=== PATIENT | female | born 1990 | race Hispanic/Latino ===

== ENCOUNTER → 2023-05-30 | Emergency (ER) | payer OTHER ==
[~2023-05-30] MED LIST: DIPHENHYDRAMINE 50 MG/ML VIAL ONE; FAMOTIDINE 20 MG/2 ML VIAL IV ONE; IPRATROPIUM BROM 0.5MG/2.5ML ONE; LEVALBUTEROL 1.25 MG/3 ML NEB ONE; METHYLPREDNISOLONE 125 MG INJ ONE; METHYLPREDNISOLONE 40 MG INJ ONE; METOPROLOL TAR 25 MG TAB ONE; METOPROLOL TARTRATE 5 MG/5 ML INJ IV ONE; NA CHLORIDE 0.9% 1,000 ML ONE; predniSONE 20 MG TAB ONE
--- OUTSIDE RECORDS SUMMARY | 2023-05-30 18:51 | XMS REPORT | Continuity of Care Document ---
Author Name Unknown Address [address] [facility]. [address] [place] [address] [facility] thconnect Address [address] [facility] [address] [place] [address] Care Team Providers Care Scale Operator Name Role Phone AURELIA CASTRO JR Primary Care Physician Sandro hameed GC_GCBZW_Dean_S Attending Clinician Unavaila CALISTA Thompson Attending Clinician Unavail able [facility] Attending [facility]ician Purvi Serna Calista LANIER Attending Clinician + LYDIA DESAI Attending Clinician Lydia Hooper Attending Clinician [phone] Melita Murillo Attending Clinician [phone] MELITA ARORA Attending Clinician Unavailabl e LUISA_GCBZW_Dena_S Admitting Clinician Tavon weaver Payers Payer Name Policy Type Policy Number Effective Date Expirati on Date Source [employer] [id number] 2022 00:00:00 2023 00:00:00 [employer] (MEDICAID REPLACEMENT - HMO) [id number] 2022 00:00:00 [employer] BENEFIT [employer] [id number] [employer] [facility] [employer] [facility] [id number] 2022 00:00:00 MEDICAID OF [place] [id number] 2022 00:00:00 Problems Condition Name Condition Details [...] Acute Vaginitis Problem Active 7-17 00:00: 00 [facility] Medical Need for HPV vaccinatio n Need for HPV vaccinatio n Disease Active 3-15 00:00: 00 [facility] Encounter for initial prescripti on of injectable contracept davidson Encounter for initial prescripti on of injectable contracept davidson Disease Active 05-22 00:00: 00 [facility] BMI 25.0-25.9, adult BMI 25.0-25.9, adult Disease Active 05-22 00:00: 00 [facility] BMI 25.0-25.9, adult BMI 25.0-25.9, adult Disease Active 05-22 00:00: 00 [facility] Screening examinatio n for STD (sexually transmitte d disease) Screening examinatio n for STD (sexually transmitte d disease) Disease Active 3- 00:00: 00 [facility] LSIL (low grade squamous intraepith elial lesion) on Pap smear LSIL (low grade squamous intraepith elial lesion) on Pap smear Disease Active 05-08 00:00: 00 Overview: Formattin g of this note might be different from the original. Refer to dysplasia . [facility] Rubella immune Rubella immune Disease Active 05-04 00:00: 00 [facility] Encounter for routine gynecologi aubrey examinatio n Encounter for routine gynecologi aubrey examinatio n Disease Active 04-30 00:00: 00 Overview: Formattin g of this note might be different from the original. ICD10 Diagnosis Term Gandy Dancer Utility [facility] Allergies, Adverse Reactions, Alerts Allergy Name Allergy Type Status Severity Reaction(s) Onset Date Inactive Date Treating Clinician Comments Source NO KNOWN ALLERGIE S Drug Class Active [facility] Social History Social Habit Start Date Stop Date Quantity Comments Source History SDOH Alcohol Frequency [facility] History SDOH Alcohol Std Drinks [facility] History SDOH Alcohol Binge [facility] Exposure to SARS-CoV-2 (event) 2022-04-14 00:00:00 2022-04-24 13:10:00 Not sure [facility] Alcohol intake 2021-09-13 00:00:00 2021-09-13 00:00:00 Current drinker of alcohol (finding) [facility] Alcohol Comment 2020-05-18 00:00:00 2020-05-18 00:00:00 social [facility] Tobacco use and exposure 2013-04-30 00:00:00 2013-04-30 00:00:00 Smokeless tobacco non-user [facility] Sex Assigned At 1990 00:00:00 1990 00:00:00 [facility] Smoking Status Start Date Stop Date Source Never smoked tobacco [facility] Medications Ordered Medication Name Filled Medication Name Start Date Stop Date Current Medication? Ordering Clinician Indication Dosage Frequency Signature (SIG) Comments Components Source Depo-[employer] Officer a 150 mg/mL intramuscul ar suspensionI nject 1 mL every 3 months by intramuscul ar route for 90 days. Depo-[employer] Officer a 150 mg/mL intramuscul ar suspensionI nject 1 mL every 3 months by intramuscul ar route for 90 days. 04-19 09:09: 37 No Depo-Prove ra 150 mg/mL intramuscu lar suspension Inject 1 mL every 3 months by intramuscu lar route for 90 days. [facility] medroxyPROG ESTERone (DEPO-PROVE RA) syringe 150 mg 04-24 20:00: 00 04-24 19:13 :00 No [id number] 150mg [facility] medroxyPROG ESTERone (DEPO-PROVE RA) syringe 150 mg 04-24 20:00: 00 04-24 19:13 :00 No [id number] 150mg 150 mg, Intramuscu lar, ONCE, 1 dose, On Sat04/24/22 at 1400, Routine [facility] medroxyPROG ESTERone (DEPO-PROVE RA) injection 150 mg 2-0 3-14 19:30: 00 04-23 20:14 :00 No [id number] 150mg Univer [facility] medroxyPROG ESTERone (DEPO-PROVE RA) injection 150 mg 2-0 3-14 19:30: 00 04-23 20:14 :00 No [id number] 150mg 150 mg, Intramuscu lar, [id number], 4 doses, First dose on Sat05/22/21 at 1430, Last dose on Sat01/29/22 at 1430, Routine [facility] medroxyPROG ESTERone (DEPO-PROVE RA) injection 150 mg 2-0 3-14 19:30: 00 04-23 20:14 :00 No [id number] [facility] medroxyPROG ESTERone (DEPO-PROVE RA) injection 150 mg 2-0 3-14 19:30: 00 04-23 20:14 :00 No [id number] 150mg 150 mg, Intramuscu lar, [id number], 4 doses, First dose on Sat05/22/21 at 1430, Last dose on Sat01/29/22 at 1430, Routine [facility] medroxyPROG ESTERone (DEPO-PROVE RA) injection 150 mg 2-0 3-14 19:30: 00 04-23 20:14 :00 No [id number] [facility] medroxyPROG ESTERone (DEPO-PROVE RA) injection 150 mg 2-0 3-14 19:30: 00 04-23 20:14 :00 No [id number] 150mg 150 mg, Intramuscu lar, [id number], 4 doses, First dose on Sat05/22/21 at 1430, Last dose on Sat01/29/22 at 1430, Routine [facility] medroxyPROG ESTERone (DEPO-PROVE RA) injection 150 mg 2-0 3-14 19:30: 00 04-23 20:14 :00 No [id number] 150mg [facility] medroxyPROG ESTERone (DEPO-PROVE RA) injection 150 mg 05-22 19:30: 00 04-23 20:14 :00 No [id number] [facility] ESTERone (DEPO-PROVE RA) injection 150 mg 05-22 19:30: 00 04-23 20:14 :00 No [id number] 150mg 150 mg, Intramuscu lar, [id number], 4 doses, First dose on Sat05/22/21 at 1430, Last dose on Sat01/29/22 at 1430, Routine [facility] mupirocin 2 % topical ointment 1 application to affected area; Three times a day; 5 day(s) mupirocin 2 % topical ointment 1 application to affected area; Three times a day; 5 day(s) 09-27 00:00: 00 No mupirocin 2 % topical ointment 1 applicatio n to affected area; Three times a day; 5 day(s) [facility] Depo-[employer] Officer a 150 mg/mL intramuscul ar suspension Inject 1 mL every 3 months by intramuscul ar route for 90 days. Depo-[employer] Officer a 150 mg/mL intramuscul ar suspension Inject 1 mL every 3 months by intramuscul ar route for 90 days. No 1mL Depo-Prove ra 150 mg/mL intramuscu lar suspension Inject 1 mL every 3 months by intramuscu lar route for 90 days. [facility] Medical multivitami n multivitami n No multivitam in [facility] Vital Signs Vital Name Observation Time Observation Value Comments S ource Systolic blood pressure 2022-04-24 19:11:00 127 mm[Hg] [facility] Diastolic blood pressure 2022-04-24 19:11:00 70 mm[Hg] [facility] Heart rate 2022-04-24 19:11:00 85 /min [facility] Body temperature 2022-04-24 19:11:00 36.39 Annmarie [facility] Respiratory rate 2022-04-24 19:11:00 18 /min [facility] Body height 2022-04-24 19:11:[address] [facility] Body weight 2022-04-24 19:11:[address] [facility] BMI 2022-04-24 19:11:00 25.36 kg/m2 [facility] Systolic blood pressure 2022-01-09 20:16:00 129 mm[Hg] [facility] Diastolic blood pressure 2022-01-09 20:16:00 81 mm[Hg] [facility] Heart rate 2022-01-09 20:16:00 87 /min [facility] Body temperature 2022-01-09 20:16:00 36.22 Annmarie [facility] Respiratory rate 2022-01-09 20:16:00 18 /min [facility] Body weight 2022-01-09 20:16:[address] [facility] BMI 2022-01-09 20:16:00 25.49 kg/m2 [facility] Systolic blood pressure 2021-09-13 14:08:00 118 mm[Hg] [facility] Diastolic blood pressure 2021-09-13 14:08:00 79 mm[Hg] [facility] Heart rate 2021-09-13 14:08:00 81 /min [facility] Body temperature 2021-09-13 14:08:00 36.28 Annmarie [facility] Respiratory rate 2021-09-13 14:08:00 18 /min [facility] Body weight 2021-09-13 14:08:[address] [facility] BMI 2021-09-13 14:08:00 26.13 kg/m2 [facility] Systolic blood pressure 2021-05-22 18:48:00 109 mm[Hg] [facility] Diastolic blood pressure 2021-05-22 18:48:00 75 mm[Hg] [facility] Heart rate 2021-05-22 18:48:00 95 /min [facility] Body temperature 2021-05-22 18:48:00 36.72 Annmarie [facility] Respiratory rate 2021-05-22 18:48:00 16 /min [facility] Body height 2021-05-22 18:48:[address] [facility] Body weight 2021-05-22 18:48:[address] [facility] BMI 2021-05-22 18:48:00 25.59 kg/m2 [facility] Procedures Procedure Date / Time Performed Performing Clinician Source POCT TEST 2021-09-13 14:13:00 Gab Serna [facility] GARDASIL 9 (HPV 9V) VACCINE 2021-09-13 14:09:26 Calista Serna [facility] HIV 1/2 AG-AB WITH REFLEX 2021-05-22 20:45:00 Lydia Desai [facility] PAP SMEAR-LIQUID BASED-CP 2021-05-22 20:45:00 Lydia Desai [facility] GALV ONLY - SYPHILIS IGG/IGM 2021-05-22 20:45:00 Lydia Desai [facility] GARDASIL 9 (HPV 9V) VACCINE 2021-05-22 19:42:17 Lydia Desai [facility] POCT TEST 2021-05-22 19:17:00 Wilfred Desai [facility] Breast Augmentation W/implt 2017-03-11 00:00:00 [facility] Hysteroscopy Dx Sep Proc 2013-12-23 00:00:00 [facility] Plan of Care Planned Activity Planned Date Details Comments Source Future Appointment 2023-09-26 13:00:00 Melita larsen, [address]; [address], [place] [phone] [facility] Medical Future Appointment 2023-07-12 08:30:00 Gcbzw Gcb jose Izaguirre Schedule, [address]; [address], [place] [phone] [facility] Medical Encounters Start Date/Time End Date/Time Encounter Type Admission Type Attending Clinicians Care Facility Care Department Encounter ID Source 2023-04-19 00:00:00 2023-04-19 00:00:00 Angle Moran MD: [address] [place] [address] S, [address], [place] [address] , Ph. [facility] - GC_GCBZW_La alee Lynn* [id number] [facility] 2023-01-18 00:00:00 2023-01-18 00:00:00 Outpatient GC_GCBZW_Ka diyala_S PRIV PRIV [id number] [facility] 2023-01-18 00:00:00 2023-01-18 00:00:00 Outpatient GC_GCBZW_Ka diyala_S PRIV PRIV [id number] [facility] 2023-01-18 00:00:00 2023-01-18 00:00:00 Outpatient GC_GCBZW_Ka diyala_S PRIV PRIV [id number] [facility] 2022-12-24 00:00:00 2022-12-24 00:00:00 Outpatient GC_GCBZW_Ka diyala_S PRIV PRIV [id number] [facility] 2022-11-07 00:00:00 2022-11-07 00:00:00 Outpatient GC_GCBZW_Ka diyala_S PRIV PRIV [id number] [facility] 2022-11-07 00:00:00 2022-11-07 00:00:00 Outpatient GC_GCBZW_Ka diyala_S PRIV PRIV [id number] [facility] 2022-11-07 00:00:00 2022-11-07 00:00:00 Outpatient GC_GCBZW_Ka diyala_S PRIV PRIV [id number] [facility] 2022-10-16 00:00:00 2022-10-16 00:00:00 Outpatient GC_GCBZW_Ka diyala_S PRIV PRIV [id number] [facility] 2022-10-16 00:00:00 2022-10-16 00:00:00 Outpatient GC_GCBZW_Ka diyala_S PRIV PRIV [id number] [facility] 2022-10-02 00:00:00 2022-10-02 00:00:00 Outpatient GC_GCBZW_Ka diyala_S PRIV PRIV [id number] [facility] 2022-09-25 00:00:00 2022-09-25 00:00:00 Outpatient GC_GCBZW_Ka diyala_S PRIV PRIV [id number] [facility] 2022-09-24 00:00:00 2022-09-24 00:00:00 Outpatient GC_GCBZW_Ka diyala_S PRIV PRIV [id number] [facility] 2022-09-20 00:00:00 2022-09-20 00:00:00 Outpatient GC_GCBZW_Ka diyala_S PRIV PRIV [id number] [facility] 2022-09-19 00:00:00 2022-09-19 00:00:00 Outpatient GC_GCBZW_Ka diyala_S PRIV PRIV [id number] [facility] 2022-08-24 09:45:00 2022-08-24 09:45:00 Outpatient R AKINSIPECALISTA [facility] [id number] [facility] 2022-08-03 13:00:00 2022-08-03 13:00:00 Outpatient R AKINSIPECALISTA [facility] [id number] [facility] 2022-07-30 15:00:00 2022-07-30 15:00:00 Outpatient R AKINSIPECALISTA [facility] [id number] [facility] 2022-07-17 14:45:00 2022-07-17 14:45:00 Outpatient R AKINSIPE CALISTA [facility] [id number] [facility] 2022-04-24 13:00:00 2022-04-24 13:10:58 Outpatient R AKINSIPE CALISTA [facility] [id number] [facility] 2022-04-24 13:00:00 2022-04-24 13:10:58 Nurse Visit Visit, ChapoRmchchapincito Nurse Calista Serna [facility] [employer] [facility] [id number] [facility] 2022-04-17 13:30:00 2022-04-17 13:30:00 Outpatient CALISTA PARIKH [facility] [id number] [facility] 2022-04-09 09:00:00 2022-04-09 09:00:00 Outpatient CALISTA PARIKH [facility] [id number] [facility] 2022-01-09 14:30:00 2022-01-09 15:18:06 Nurse Visit Visit, Horaciochchapincito Nurse Calista Serna [facility] [employer] [facility] 1..840.114 [id number] [id number] [facility] 2022-01-09 14:30:00 2022-01-09 14:30:00 Outpatient CALISTA PARIKH [facility] [id number] [facility] 2022-01-08 00:00:00 2022-01-08 00:00:00 Telephone Calista Serna [facility] [employer] [facility] 1..840.114 [id number] [id number] [facility] 2022-01-01 13:00:00 2022-01-01 13:00:00 Outpatient R CALISTA SERNA [facility] [id number] [facility] 2021-12-18 13:30:00 2021-12-18 13:30:00 Outpatient R LYDIA DESAI [facility] [id number] [facility] 2021-12-14 09:00:00 2021-12-14 09:00:00 Outpatient R DESAILYDIA [facility] [id number] [facility] 2021-09-13 09:00:00 2021-09-13 09:26:35 Nurse Visit Visit, Ang-Rmchp Nurse Lydia Desai [facility] [employer] [facility] ..840.114 [id number] [id number] [facility] 2021-09-13 09:00:00 2021-09-13 09:00:00 Outpatient R LYDIA DESAI [facility] [id number] [facility] 2021-08-14 15:00:00 2021-08-14 15:00:00 Outpatient R CALISTA SERNA [facility] [id number] [facility] 2021-07-28 08:00:00 2021-07-28 08:00:00 Outpatient R DESAILYDIA [facility] [id number] [facility] 2021-07-24 15:00:00 2021-07-24 15:00:00 Outpatient R [facility] [id number] [facility] 2021-07-24 15:00:00 2021-07-24 15:00:00 Outpatient R LYDIA DESAI [facility] [id number] [facility] 2021-05-22 13:45:00 2021-05-22 14:41:23 Outpatient R LYDIA DESAI [facility] [id number] [facility] 2021-05-22 13:45:00 2021-05-22 14:41:23 Office Visit Lydia Desai [facility] [employer] [facility] ..840.114 [id number] [id number] [id number] [facility] 2021-05-22 13:45:00 2021-05-22 14:41:23 Outpatient R LYDIA DESAI [facility] [id number] [facility] 2021-05-09 14:15:00 2021-05-09 14:15:00 Outpatient R CALISTA SERNA [facility] [id number] [facility] 2021-02-14 15:26:31 2021-02-14 15:49:16 Nurse Visit Visit, Jin-Rmp Melita Brice [facility] [employer] [facility] [id number] [id number] [id number] [facility] 2021-02-14 15:30:00 2021-02-14 15:30:00 Outpatient R MELITA ARORA [facility] [id number] [facility] 2021-02-08 08:30:00 2021-02-08 08:30:00 Outpatient R [facility] [id number] [facility] 2020-11-16 08:38:28 2020-11-16 08:58:47 Nurse Visit Visit, Jin-Rmchp Calista Bailey [facility] .[id number] [id number] [id number] [facility] 2020-11-16 08:30:00 2020-11-16 08:30:00 Outpatient R [facility] [id number] [facility] 2020-08-24 08:30:00 2020-08-24 08:30:00 Outpatient R [facility] [id number] [facility] 2020-06-02 15:30:00 2020-06-02 15:30:00 Outpatient R [facility] [id number] [facility] 2020-06-01 09:00:00 2020-06-01 09:00:00 Outpatient R AKINSIPE, CALISTA [facility] [id number] [facility] 2020-05-18 13:30:00 2020-05-18 13:30:00 Outpatient CALISTA PARIKH [facility] [id number] [facility] Results Test Description Test Time Test Comments Results Result Co mments Source [facility] ONLY - SYPHILIS [id number] 15:41:25* Test Item Value Reference Range Interpretation Comme [facility] Syphilis IgG/IgM (test code = 85053-3) Non-reactive Non-reactive RENETTA (test code = RENETTA) Non-reactive - No serologic evidence of T. pallidum infection. Cannot exclude incubating or early syphilis. Submit a second specimen in 2-4 weeks if syphilis is clinically suspected. Equivocal - Further testing to follow. Reactive - Further testing to follow. Lab Interpretation (test code = 69816-6) Normal [facility] ONLY - SYPHILIS [id number] 15:41:25* Test Item Value Reference Range Interpretation Comme [facility] Syphilis IgG/IgM (test code = 87864-4) Non-reactive Non-reactive RENETTA (test code = RENETTA) Non-reactive - No serologic evidence of T. pallidum infection. Cannot exclude incubating or early syphilis. Submit a second specimen in 2-4 weeks if syphilis is clinically suspected. Equivocal - Further testing to follow. Reactive - Further testing to follow. Lab Interpretation (test code = 82078-6) Normal [facility] 1/2 AG-AB WITH [id number] 05:11:44* Test Item Value Reference Range Interpretation Comme [facility] HIV Semi-quantitative (test code = 62870-1) Negative Negative RENETTA (test code = RENETTA) Non-reactive for HIV-1 antigen and HIV-1/HIV-2 antibodies. ?No laboratory evidence of HIV infection. ?Repeat in 2-4 weeks if acute HIV infection is suspected. [facility] 1/2 AG-AB WITH [id number] 05:11:44* Test Item Value Reference Range Interpretation Comme [facility] HIV Semi-quantitative (test code = 50159-7) Negative Negative RENETTA (test code = RENETTA) Non-reactive for HIV-1 antigen and HIV-1/HIV-2 antibodies. ?No laboratory evidence of HIV infection. ?Repeat in 2-4 weeks if acute HIV infection is suspected. [id number] 19:17:00* Test Item Value Reference Range Interpretation Comme nts POCT PREG (test code = 1605) Negative On board controls acceptable with C Line (test code = 3574) Yes POCT PREG LOT # (test code = 3575) POCT PREG TEST DATE ( test code = 3576) [facility] [id number] 19:17:00* Test Item Value Reference Range Interpretation Comme nts POCT PREG (test code = 1605) Negative On board controls acceptable with C Line (test code = 3574) Yes POCT PREG LOT # (test code = 3575) POCT PREG TEST DATE ( test code = 3576) [facility]
[2023-05-30 19:29] LABS: Absolute Lymphocytes (CBC) 0.9 K/uL (0.7-4.9); Absolute Monocytes 0.2 K/uL (0.1-1.3); Basophils % 0.2 % (0-1.3); Hematocrit 37.9 % (36.0-45.0); Hemoglobin 13.5 g/dL (12.0-15.0); MCH 33.9 pg (27.0-35.0); MCHC 35.7 g/dL (32.0-36.0); MCV 94.9 fL (80-100); Monocytes % 2.6 % (3.3-12.3); Neutrophils % 87.2 % (41.7-73.7); Nucleated Red Blood Cells % 0.2 % (0-0); Platelets 334 thou/uL (152-406); RBC Red Blood Cell Count 3.99 M/uL (3.86-4.86); Red Cell Distribution Width 12.7 % (12.1-15.2)
[2023-05-30 19:33] LABS: Anion Gap 12.7 mEq/L (5.0-15.0); Potassium 3.7 mEq/L (3.5-5.1)
[2023-05-30 21:07] LABS: Blood Morphology Comment NOT SEEN (NOT SEEN); Platelet Estimate ADEQ; White Blood Cell Scan OK (OK)
--- NOTE | 2023-05-30 22:55 | ER ---
Nurse's Notes [facility] Name: Regine Barrera Age: 32 yrs Sex: Female : 1990 Arrival Date: 05/30/2023 Time: 18:48 Bed 16 Private MD: Diagnosis: Other and unspecified allergy;Urticaria, unspecified Presentation: 05/29 18:53 Chief complaint: Patient states: "I was here in the ER for the same thing this morning. mb9 I'm having a allergic reaction and rash on my hands, arms, chest, legs, and chest. My heart feels like it's beating super fast. Dr. Moreno told me to come to the ER to rule out angioedema". Coronavirus screen: Vaccine status: Patient reports being unvaccinated. Ebola Screen: No symptoms or risks identified at this time. Initial Sepsis Screen: Does the patient meet any 2 criteria? No. Patient's initial sepsis screen is negative. Does the patient have a suspected source of infection? No. Patient's initial sepsis screen is negative. Risk Assessment: Do you want to hurt yourself or someone else? Patient reports no desire to harm self or others. Onset of symptoms was May 30, 2023. 18:53 Method Of Arrival: Ambulatory mb9 18:53 Acuity: NANCY 3 mb9 Triage Assessment: 18:56 General: Appears in no apparent distress. Behavior is calm, cooperative. Pain: Denies mb9 pain. Cardiovascular: Reports palpitations, Patient's skin is warm and dry. Rhythm is sinus tachycardia. Respiratory: Airway is patent Respiratory effort is even, unlabored, Respiratory pattern is regular, symmetrical. GI: No signs and/or symptoms were reported involving the gastrointestinal system. Derm: Rash noted that is itchy, red, raised, on chest, abdomen, right hand, left hand, right arm, left arm, right leg, left leg and mouth. Musculoskeletal: Range of motion: intact in all extremities. 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 - Social history:: Smoking status: Patient denies any tobacco usage or history of. Screenin:15 [facility] ED Fall Risk Assessment (Adult) History of falling in the last 3 months, me1 including since admission No falls in past 3 months (0 pts) Confusion or Disorientation No (0 pts) Intoxicated or Sedated No (0 pts) Impaired Gait No (0 pts) Mobility Assist Device Used No (0 pt) Altered Elimination No (0 pt) Score/Fall Risk Level 0 - 2 = Low Risk Maintained a safe environment, Provided non-skid footwear, Hourly rounding (assess needs \\T\\ fall precautionary measures) done. Abuse screen: Denies threats or abuse. Nutritional screening: No deficits noted. Tuberculosis screening: No symptoms or risk factors identified. Assessment: 19:15 General: Appears uncomfortable, well groomed, well developed, well nourished, Behavior me1 is calm, cooperative, appropriate for age, Reports "I was here in the ER for the same thing this morning. I'm having a allergic reaction and rash on my hands, arms, chest, legs, and chest. My heart feels like it's beating super fast. Dr. Moreno told me to come to the ER to rule out angioedema". Pain: Denies pain. Neuro: Level of Consciousness is awake, alert, obeys commands, Oriented to person, place, time, situation, Appropriate for age. Cardiovascular: Patient's skin is warm and dry. Cardiovascular: Patient's skin is warm and dry. Respiratory: Airway is patent Respiratory effort is even, unlabored, Respiratory pattern is regular, symmetrical. Derm: edema noted to bottom lip and across bridge of nose. Hives to bilateral thighs. 20:00 Reassessment: Patient and/or family updated on plan of care and expected duration. Pain me1 level reassessed. Patient is alert, oriented x 3, equal unlabored respirations, skin warm/dry/pink. 21:00 Reassessment: Patient and/or family updated on plan of care and expected duration. Pain me1 level reassessed. Patient is alert, oriented x 3, equal unlabored respirations, skin warm/dry/pink. 22:00 Reassessment: Patient and/or family updated on plan of care and expected duration. Pain me1 level reassessed. Patient is alert, oriented x 3, equal unlabored respirations, skin warm/dry/pink. Patient states feeling better. 23:00 Reassessment: Patient and/or family updated on plan of care and expected duration. Pain me1 level reassessed. Patient is alert, oriented x 3, equal unlabored respirations, skin warm/dry/pink. Vital Signs: 18:53 BP 133 / 81; Pulse 130; Resp 18; Temp 98; Pulse Ox 100% on R/A; Weight 68.95 kg; Height mb9 5 ft. 4 in. ; Pain 0/10; 19:45 BP 127 / 77; Pulse 124; Resp 18; Pulse Ox 100% on R/A; me1 20:30 BP 122 / 72; Pulse 125; Resp 18; Pulse Ox 97% on R/A; me1 21:41 BP 111 / 74; Pulse 129; Resp 18; Pulse Ox 98% on R/A; me1 21:45 BP 119 / 78; Pulse 114; Resp 18; Pulse Ox 96% on R/A; me1 22:00 BP 119 / 78; Pulse 111; Resp 20; Pulse Ox 100% on R/A; me1 23:02 BP 117 / 86; Pulse 118; Resp 16; Pulse Ox 99% on R/A; me1 18:53 Body Mass Index 26.09 (68.95 kg, 162.56 cm) mb9 18:53 Pain Scale: Adult mb9 ED Course: 18:51 Patient arrived in ED. mg5 18:53 Edison Hill PA is PHCP. cp 18:53 Edison Nath MD is Attending Physician. cp 18:53 Arm band placed on. mb9 18:56 Triage completed. mb9 19:05 Inserted saline lock: 18 gauge in right antecubital area, using aseptic technique. mb9 Blood collected. 19:15 Patient has correct armband on for positive identification. Bed in low position. Call mo1 light in reach. Side rails up X2. Provided Education on: POC. Verbalized understanding. . 19:15 No provider procedures requiring assistance completed. me1 19:28 Jael Neil, RANJEET is Primary Nurse. me1 23:20 IV discontinued, intact, bleeding controlled, No redness/swelling at site. Pressure me1 dressing applied. Administered Medications: 19:31 Not Given (Duplicate Order): [id number] mg IVP once ata 19:51 Drug: Famotidine IVP 20 mg IVP once; dilute with 10 mL 0.9% NaCl; give over 2 minutes me1 Route: IVP; Site: right antecubital; 20:47 Follow up: Response: No adverse reaction me1 19:51 Drug: Levalbuterol Inhalation 2.5 mg Inhalation once Route: Inhalation; me1 20:47 Follow up: Response: No adverse reaction me1 19:51 Drug: Ipratropium Inhalation Aerosol 0.5 mg Inhalation once Route: Inhalation; me1 20:47 Follow up: Response: No adverse reaction me1 19:52 Drug: NS 0.9% IV 1000 ml IV at 1 bolus Per protocol; 1000 mL bolus Route: IV; Rate: 1 me1 bolus; Site: right antecubital; 20:46 Follow up: IV Status: Completed infusion; IV Intake: 1000ml me1 19:52 Drug: Famotidine IVP 20 mg IVP once; dilute with 10 mL 0.9% NaCl; give over 2 minutes me1 Route: IVP; Site: right antecubital; 20:46 Follow up: Response: No adverse reaction me1 19:52 Drug: diphenhydrAMINE IVP 50 mg IVP once Route: IVP; Site: right antecubital; me1 20:46 Follow up: Response: (VIS) Vaccine information sheet provided today. Questions and/or me1 concerns addressed. VIS edition date: Oct 14, 2020. 19:52 Drug: MethylPrednisoLONE IVP 125 mg IVP once Route: IVP; Site: right antecubital; me1 20:46 Follow up: Response: No adverse reaction me1 19:52 Drug: predniSONE PO 60 mg PO once Route: PO; me1 20:47 Follow up: Response: No adverse reaction me1 21:58 Drug: Metoprolol IVP 5 mg IVP once; Hold for SBP <100 or HR <60. Route: IVP; Site: me1 right antecubital; 22:21 Follow up: Response: No adverse reaction me1 22:02 Drug: NS 0.9% IV 1000 ml IV at 1 bolus Per protocol; 1000 mL bolus Route: IV; Rate: 1 me1 bolus; Site: right antecubital; 23:21 Follow up: IV Status: Completed infusion me1 22:20 Drug: Metoprolol PO 12.5 mg PO once Route: PO; me1 23:03 Follow up: Response: No adverse reaction me1 Medication: 19:15 VIS not applicable for this client. me1 Intake: 20:46 IV: 1000ml; Total: 1000ml. me1 Outcome: 22:54 Discharge ordered by . cp 23:20 Discharged to home ambulatory, me1 23:20 Condition: stable 23:20 Discharge instructions given to patient, Instructed on discharge instructions, follow up and referral plans. Demonstrated understanding of instructions, follow-up care, 23:21 Patient left the ED. me1 Signatures: Edison Hill PA PA cp Breneman, Mary Beth RN RN mb9 Jael Neil RN RN mo1 Lluvia Vernon 5 Edison Nath MD, cha Corrections: (The following items were deleted from the chart) 18:58 18:53 Chief complaint: Patient states: "I was here in the ER for the same thing this mb9 morning. I'm having a allergic reaction and rash on my hands, arms, chest, legs, and chest. My heart feels like it's beating super fast. Dr. Moreno told me to come to the ER" mb9 21:03 18:53 Chief complaint: Patient states: "I was here in the ER for the same thing this me1 morning. I'm having a allergic reaction and rash on my hands, arms, chest, legs, and chest. My heart feels like it's beating super fast. Dr. Moreno told me to come to the ER to rule out angioedema" mb9
--- NOTE | 2023-05-30 22:55 | EDPHYS ---
Physician Documentation [facility] Name: Regine Barrera Age: 32 yrs Sex: Female : 1990 Arrival Date: 05/30/2023 Time: 18:48 Bed 16 Private MD: ED Physician Edison Nath HPI: 05/29 19:10 This 32 yrs old Female presents to ER via Ambulatory with complaints of Rash - cp HIVES. 19:10 The patient's rash thought to be caused by an unknown cause. The rash is located on the cp body diffusely. The rash can be described as hives. Associated signs and symptoms: Pertinent positives: swelling of lips, Pertinent negatives: difficulty breathing, fever, swelling of throat, swelling of tongue, vomiting. The patient has been recently seen at the [facility] Emergency Department, for similar complaints this morning. 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 - Social history:: Smoking status: Patient denies any tobacco usage or history of. ROS: 19:15 Constitutional: Negative for body aches, chills, fever, poor PO intake, cp 19:15 Eyes: Negative for injury, pain, redness, and discharge, cp 19:15 ENT: Positive for swelling of lips, Negative for sore throat, difficulty swallowing, difficulty handling secretions, hoarseness, 19:15 Cardiovascular: Negative for chest pain, palpitations, 19:15 Respiratory: Negative for cough, shortness of breath, wheezing, 19:15 Abdomen/GI: Negative for abdominal pain, vomiting, diarrhea, constipation, 19:15 Skin: Positive for rash, diffusely, 19:15 Neuro: Negative for altered mental status, dizziness, headache, weakness, 19:15 All other systems are negative, Exam: 21:00 Constitutional: The patient appears in no acute distress, alert, awake, non-toxic, well cp developed, well nourished, 21:00 Head/face: Noted is swelling, that is mild, of the mouth, 21:00 Eyes: Periorbital structures: appear normal, Conjunctiva: normal, no exudate, no injection, Sclera: no appreciated abnormality, Lids and lashes: appear normal, bilaterally, 21:00 ENT: External ear(s): are unremarkable, Nose: is normal, Mouth: Oral mucosa: pink and intact, moist, Tongue: is normal, Posterior pharynx: Airway: no evidence of obstruction, patent, swelling, is not appreciated, erythema, is not appreciated, exudate, is not appreciated, Voice: is normal, 21:00 Neck: ROM/movement: is normal, is supple, without pain, no range of motions limitations, 21:00 Chest/axilla: Inspection: normal, 21:00 Cardiovascular: Rate: tachycardic, Rhythm: regular, 21:00 Respiratory: the patient does not display signs of respiratory distress, Respirations: normal, no use of accessory muscles, no retractions, labored breathing, is not present, Breath sounds: are clear throughout, no decreased breath sounds, no stridor, no wheezing, 21:00 Abdomen/GI: Exam negative for discomfort, distension, guarding, Inspection: abdomen appears normal, 21:00 Skin: rash can be described as urticarial, hives, and is diffusely located, 21:00 Neuro: Orientation: is normal, Mentation: is normal, 21:47 ECG was reviewed by the Attending Physician. cp Vital Signs: 18:53 BP 133 / 81; Pulse 130; Resp 18; Temp 98; Pulse Ox 100% on R/A; Weight 68.95 kg; Height mb9 5 ft. 4 in. ; Pain 0/10; 19:45 BP 127 / 77; Pulse 124; Resp 18; Pulse Ox 100% on R/A; me1 20:30 BP 122 / 72; Pulse 125; Resp 18; Pulse Ox 97% on R/A; me1 21:41 BP 111 / 74; Pulse 129; Resp 18; Pulse Ox 98% on R/A; me1 21:45 BP 119 / 78; Pulse 114; Resp 18; Pulse Ox 96% on R/A; me1 22:00 BP 119 / 78; Pulse 111; Resp 20; Pulse Ox 100% on R/A; me1 23:02 BP 117 / 86; Pulse 118; Resp 16; Pulse Ox 99% on R/A; me1 18:53 Body Mass Index 26.09 (68.95 kg, 162.56 cm) mb9 18:53 Pain Scale: Adult mb9 MDM: 18:53 Patient medically screened. cp 22:23 Data reviewed: vital signs, nurses notes, lab test result(s), I have discussed the cp patient's presentation/case with the attending Emergency Department Physician; and as a result, I will discharge patient. 22:23 Differential diagnosis: anaphylaxis, allergic reaction. Consideration of cp Admission/Observation Escalation of care including admission/observation considered. I considered the following discharge prescriptions or medication management in the emergency department Medications were administered in the Emergency Department. See MAR. Response to treatment: the patient's symptoms have markedly improved after treatment, and as a result, I will discharge patient. 05/29 19:09 Order name: CBC with Diff; Complete Time: 21:22 cp 05/29 21:22 Interpretation: Normal except: AR% 87.2; LYM% 10.0; MN% 2.6. cp 05/29 19:09 Order name: BMP; Complete Time: 21:22 cp 05/29 21:22 Interpretation: Normal except: GLUC 234. cp 05/29 21:08 Order name: CBC Smear Scan; Complete Time: 21:22 EDMS 05/29 21:25 Order name: EKG; Complete Time: 21:26 cp 05/29 19:05 Order name: IV Saline Lock; Complete Time: 19:05 mb9 05/29 21:25 Order name: EKG - Nurse/Tech; Complete Time: 21:59 cp EC:47 Rate is 118 beats/min. Rhythm is regular. UT interval is normal. QRS interval is cp normal. QT interval is normal. T waves are Inverted in lead III. Interpreted by me. Reviewed by me. Administered Medications: 19:31 Not Given (Duplicate Order): [id number] mg IVP once ata 19:51 Drug: Famotidine IVP 20 mg IVP once; dilute with 10 mL 0.9% NaCl; give over 2 minutes me1 Route: IVP; Site: right antecubital; 20:47 Follow up: Response: No adverse reaction me1 19:51 Drug: Levalbuterol Inhalation 2.5 mg Inhalation once Route: Inhalation; me1 20:47 Follow up: Response: No adverse reaction me1 19:51 Drug: Ipratropium Inhalation Aerosol 0.5 mg Inhalation once Route: Inhalation; me1 20:47 Follow up: Response: No adverse reaction me1 19:52 Drug: NS 0.9% IV 1000 ml IV at 1 bolus Per protocol; 1000 mL bolus Route: IV; Rate: 1 me1 bolus; Site: right antecubital; 20:46 Follow up: IV Status: Completed infusion; IV Intake: 1000ml me1 19:52 Drug: Famotidine IVP 20 mg IVP once; dilute with 10 mL 0.9% NaCl; give over 2 minutes me1 Route: IVP; Site: right antecubital; 20:46 Follow up: Response: No adverse reaction me1 19:52 Drug: diphenhydrAMINE IVP 50 mg IVP once Route: IVP; Site: right antecubital; me1 20:46 Follow up: Response: (VIS) Vaccine information sheet provided today. Questions and/or me1 concerns addressed. VIS edition date: Oct 14, 2020. 19:52 Drug: MethylPrednisoLONE IVP 125 mg IVP once Route: IVP; Site: right antecubital; me1 20:46 Follow up: Response: No adverse reaction me1 19:52 Drug: predniSONE PO 60 mg PO once Route: PO; me1 20:47 Follow up: Response: No adverse reaction me1 21:58 Drug: Metoprolol IVP 5 mg IVP once; Hold for SBP <100 or HR <60. Route: IVP; Site: id1 right antecubital; 22:21 Follow up: Response: No adverse reaction me1 22:02 Drug: NS 0.9% IV 1000 ml IV at 1 bolus Per protocol; 1000 mL bolus Route: IV; Rate: 1 me1 bolus; Site: right antecubital; 23:21 Follow up: IV Status: Completed infusion me1 22:20 Drug: Metoprolol PO 12.5 mg PO once Route: PO; me1 23:03 Follow up: Response: No adverse reaction me1 Disposition Summary: 05/30/23 22:54 Discharge Ordered Notes: Location: Home cp Problem: new cp Symptoms: have improved cp Condition: Stable cp Diagnosis - Other and unspecified allergy cp - Urticaria, unspecified cp Followup: cp - With: Private Physician - When: 2 - 3 days - Reason: Recheck today's complaints Discharge Instructions: - Discharge Summary Sheet cp - Allergies, Adult cp - Hives cp Forms: - Medication Reconciliation Form cp - Thank You Letter cp - Antibiotic Education cp - Prescription Opioid Use cp - Patient Portal Instructions cp - Leadership Thank You Letter cp Signatures: Dispatcher [employer] Edison Giraldo MD MD cha Page, Corey, PA PA cp Breneman, Nichole Cr RN RN mb9 Jael Neil RN RN me1
[2023-05-30 23:35] VITALS: BP 117/86; TEMP 98; O2SAT 99
--- NOTE | 2023-06-03 14:29 | EKG ---
Test Date: 2023-05-30 Test Time: 21:41:01 Derrick Follower: MEASUREMENT RESULTS: Intervals: Rate: 118 MN: 148 QRSD: 78 QT: 322 QTc: 451 [place]: P: 65 MN: 148 QRS: 39 T: 26 INTERPRETIVE STATEMENTS: Sinus tachycardia Low voltage QRS Nonspecific T wave abnormality Abnormal ECG Compared to ECG 06/10/2002 12:05:00 Low QRS voltage now present T-wave abnormality now present Sinus rhythm no longer present Electronically Signed On 06-03-23 14:17:26 CDT by Jose Muse
== END ==
LOC: ER 18:48
DX: L50.9 Urticaria, unspecified (principal); T78.49XA Other allergy, initial encounter
CPT/HCPCS: 96361; 93005; 85025; 80048; 36415; 96375; 96374; 99285; J7512; J1200; J7614; J7644; J2930; J7030 ×2; J2920

== ENCOUNTER → 2023-05-30 | Emergency (ER) | payer OTHER ==
[~2023-05-30] MED LIST changes: -IPRATROPIUM BROM 0.5MG/2.5ML ONE; -LEVALBUTEROL 1.25 MG/3 ML NEB ONE; -METHYLPREDNISOLONE 40 MG INJ ONE; -METOPROLOL TAR 25 MG TAB ONE; -METOPROLOL TARTRATE 5 MG/5 ML INJ IV ONE
--- OUTSIDE RECORDS SUMMARY | 2023-05-30 05:07 | XMS REPORT | Continuity of Care Document ---
Author Name Unknown Address [address] [facility]. [address] [place] [address] [facility] thconnect Address [address] [facility] [address] [place] [address] Care Team Providers Care Product Development Ecologist Name Role Phone AURELIA CASTRO JR Primary Care Physician Sandro hameed GC_GCBZW_Dean_S Attending Clinician Unavaila CALISTA Thompson Attending Clinician Unavail able [facility], [facility]ending [facility]ician Purvi Serna Calista LANIER Attending Clinician + LYDIA DESAI Attending Clinician Lydia Hooper Attending Clinician [phone] Melita Murillo Attending Clinician [phone] MELITA ARORA Attending Clinician Unavailabl e LUISA_GCBZW_Dean_S Admitting Clinician Tavon weaver Payers Payer Name Policy Type Policy Number Effective Date Expirati on Date Source [employer]ARA [employer]EN[employer] [id number] 2022 00:00:00 2023 00:00:00 [employer] (MEDICAID REPLACEMENT - HMO) [id number] 2022 00:00:00 [employer] BENEFIT [place] [id number] Speed Dating by [place] Lace [facility] SERPs [facility] [id number] 2022 00:00:00 MEDICAID OF [place] [id number] 2022 00:00:00 Problems Condition Name Condition Details Condition Category Status Onset Date Resolution Date Last Treatment Date Treating Clinician Comments Source Irregular periods Irregular Periods Problem Active 2022-03 0-23 00:00: 00 [facility] Pain in pelvis Pain in Pelvis Problem Active 2022-03 0-16 00:00: 00 [facility] Abnormal uterine bleeding Abnormal Uterine Bleeding Problem Active 2022-03 0-16 00:00: 00 [facility] Acute vaginitis Acute Vaginitis Problem Active 7-17 00:00: 00 [facility] Need for HPV vaccinatio n Need for HPV vaccinatio n Disease Active 3-15 00:00: 00 [facility] Encounter for initial prescripti on of injectable contracept davidson Encounter for initial prescripti on of injectable contracept davidson Disease Active 05-22 00:00: 00 [facility] BMI 25.0-25.9, adult BMI 25.0-25.9, adult Disease Active 05-22 00:00: 00 [facility] BMI 25.0-25.9, adult BMI 25.0-25.9, adult Disease Active 05-22 00:00: 00 [facility] Screening examinatio n for STD (sexually transmitte d disease) Screening examinatio n for STD (sexually transmitte d disease) Disease Active 3- 00:00: 00 [facility] LSIL (low grade squamous intraepith elial lesion) on Pap smear LSIL (low grade squamous intraepith elial lesion) on Pap smear Disease Active 05-08 00:00: 00 Overview: Formattin g of this note might be different from the original. Refer to dysplasia . [facility] Rubella immune Rubella immune Disease Active 05-04 00:00: 00 [facility] Encounter for routine gynecologi aubrey examinatio n Encounter for routine gynecologi aubrey examinatio n Disease Active 04-30 00:00: 00 Overview: Formattin g of this note might be different from the original. 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 [facility] Allergies, Adverse Reactions, Alerts Allergy Name Allergy Type Status Severity Reaction(s) Onset Date Inactive Date Treating Clinician Comments Source NO KNOWN ALLERGIE S Drug Class Active [facility] Social History Social Habit Start Date Stop Date Quantity Comments Source History SDOH Alcohol Frequency [facility] History SDOH Alcohol Std Drinks [facility] History SDOH Alcohol Binge [facility] Exposure to SARS-CoV-2 (event) 2022-04-14 00:00:00 2022-04-24 13:10:00 Not sure [facility] Alcohol intake 2021-09-13 00:00:00 2021-09-13 00:00:00 Current drinker of alcohol (finding) [facility] Alcohol Comment 2020-05-18 00:00:00 2020-05-18 00:00:00 social [facility] Tobacco use and exposure 2013-04-30 00:00:00 2013-04-30 00:00:00 Smokeless tobacco non-user [facility] Sex Assigned At 1990 00:00:00 1990 00:00:00 [facility] Smoking Status Start Date Stop Date Source Never smoked tobacco [facility] Medications Ordered Medication Name Filled Medication Name Start Date Stop Date Current Medication? Ordering Clinician Indication Dosage Frequency Signature (SIG) Comments Components Source Depo-Dry Plasterer Helper a 150 mg/mL intramuscul ar suspensionI nject 1 mL every 3 months by intramuscul ar route for 90 days. Depo-Dry Plasterer Helper a 150 mg/mL intramuscul ar suspensionI nject 1 mL every 3 months by intramuscul ar route for 90 days. 04-19 09:09: 37 No Depo-Prove ra 150 mg/mL intramuscu lar suspension Inject 1 mL every 3 months by intramuscu lar route for 90 days. [facility] medroxyPROG ESTERone (DEPO-PROVE RA) syringe 150 mg 04-24 20:00: 00 04-24 19:13 :00 No [id number] 150mg [facility] medroxyPROG ESTERone (DEPO-PROVE RA) syringe 150 mg 04-24 20:00: 00 04-24 19:13 :00 No [id number] 150mg 150 mg, Intramuscu lar, ONCE, 1 dose, On Sat04/24/22 at 1400, Routine [facility] medroxyPROG ESTERone (DEPO-PROVE RA) injection 150 mg 2-0 3-14 19:30: 00 04-23 20:14 :00 No [id number] 150mg [facility] medroxyPROG ESTERone (DEPO-PROVE RA) injection 150 mg 2-0 3-14 19:30: 00 04-23 20:14 :00 No [id number] 150mg 150 mg, Intramuscu lar, [id number], 4 doses, First dose on Sat05/22/21 at 1430, Last dose on Sat01/29/22 at 1430, Routine [facility] medroxyPROG ESTERone (DEPO-PROVE RA) injection 150 mg 2-0 3-14 19:30: 00 04-23 20:14 :00 No [id number] [facility] medroxyPROG ESTERone (DEPO-PROVE RA) injection 150 mg 2-0 3-14 19:30: 00 04-23 20:14 :00 No [id number] 150mg 150 mg, Intramuscu lar, [id number], 4 doses, First dose on Sat05/22/21 at 1430, Last dose on Sat01/29/22 at 1430, Routine [facility] medroxyPROG ESTERone (DEPO-PROVE RA) injection 150 mg 2-0 3-14 19:30: 00 04-23 20:14 :00 No [id number] 150[facility] medroxyPROG ESTERone (DEPO-PROVE RA) injection 150 mg 2-0 3-14 19:30: 00 04-23 20:14 :00 No [id number] 150mg 150 mg, Intramuscu lar, [id number], 4 doses, First dose on Sat05/22/21 at 1430, Last dose on Sat01/29/22 at 1430, Routine [facility] medroxyPROG ESTERone (DEPO-PROVE RA) injection 150 mg 2-0 3-14 19:30: 00 04-23 20:14 :00 No [id number] 150mg [facility] medroxyPROG ESTERone (DEPO-PROVE RA) injection 150 mg 05-22 19:30: 00 04-23 20:14 :00 No [id number] [facility] (DEPO-PROVE RA) injection 150 mg 05-22 19:30: 00 04-23 20:14 :00 No [id number] 150mg 150 mg, Intramuscu lar, [id number], 4 doses, First dose on Sat05/22/21 at 1430, Last dose on Sat01/29/22 at 1430, Routine [facility] mupirocin 2 % topical ointment 1 application to affected area; Three times a day; 5 day(s) mupirocin 2 % topical ointment 1 application to affected area; Three times a day; 5 day(s) 09-27 00:00: 00 No mupirocin 2 % topical ointment 1 applicatio n to affected area; Three times a day; 5 day(s) [facility] Depo-Dry Plasterer Helper a 150 mg/mL intramuscul ar suspension Inject 1 mL every 3 months by intramuscul ar route for 90 days. Depo-Dry Plasterer Helper a 150 mg/mL intramuscul ar suspension Inject 1 mL every 3 months by intramuscul ar route for 90 days. No 1mL Depo-Prove ra 150 mg/mL intramuscu lar suspension Inject 1 mL every 3 months by intramuscu lar route for 90 days. [facility] multivitami n multivitami n No multivitam in [facility] Vital Signs Vital Name Observation Time Observation Value Comments S ource Systolic blood pressure 2022-04-24 19:11:00 127 mm[Hg] [facility] Diastolic blood pressure 2022-04-24 19:11:00 70 mm[Hg] [facility] Heart rate 2022-04-24 19:11:00 85 /min [facility] Body temperature 2022-04-24 19:11:00 36.39 Annmarie [facility] Respiratory rate 2022-04-24 19:11:00 18 /min [facility] Body height 2022-04-24 19:11:00 165.1 cm [facility] Body weight 2022-04-24 19:11:00 69.128 kg [facility] BMI 2022-04-24 19:11:00 25.36 kg/m2 [facility] Systolic blood pressure 2022-01-09 20:16:00 129 mm[Hg] [facility] Diastolic blood pressure 2022-01-09 20:16:00 81 mm[Hg] [facility] Heart rate 2022-01-09 20:16:00 87 /min [facility] Body temperature 2022-01-09 20:16:00 36.22 Annmarie [facility] Respiratory rate 2022-01-09 20:16:00 18 /min [facility] Body weight 2022-01-09 20:16:00 69.491 kg [facility] BMI 2022-01-09 20:16:00 25.49 kg/m2 [facility] Systolic blood pressure 2021-09-13 14:08:00 118 mm[Hg] [facility] Diastolic blood pressure 2021-09-13 14:08:00 79 mm[Hg] [facility] Heart rate 2021-09-13 14:08:00 81 /min [facility] Body temperature 2021-09-13 14:08:00 36.28 Annmarie [facility] Respiratory rate 2021-09-13 14:08:00 18 /min [facility] Body weight 2021-09-13 14:08:00 71.215 kg [facility] BMI 2021-09-13 14:08:00 26.13 kg/m2 [facility] Systolic blood pressure 2021-05-22 18:48:00 109 mm[Hg] [facility] Diastolic blood pressure 2021-05-22 18:48:00 75 mm[Hg] [facility] Heart rate 2021-05-22 18:48:00 95 /min [facility] Body temperature 2021-05-22 18:48:00 36.72 Annmarie [facility] Respiratory rate 2021-05-22 18:48:00 16 /min [facility] Body height 2021-05-22 18:48:00 165.1 cm [facility] Body weight 2021-05-22 18:48:00 69.763 kg [facility] BMI 2021-05-22 18:48:00 25.59 kg/m2 [facility] Procedures Procedure Date / Time Performed Performing Clinician Source POCT TEST 2021-09-13 14:13:00 Gab Serna [facility] GARDASIL 9 (HPV 9V) VACCINE 2021-09-13 14:09:26 Calista Serna [facility] HIV 1/2 AG-AB WITH REFLEX 2021-05-22 20:45:00 Lydia Desai [facility] PAP SMEAR-LIQUID BASED-CP 2021-05-22 20:45:00 Lydia Desai [facility] GALV ONLY - SYPHILIS IGG/IGM 2021-05-22 20:45:00 Lydia Desai [facility] GARDASIL 9 (HPV 9V) VACCINE 2021-05-22 19:42:17 Lydia Desai [facility] POCT TEST 2021-05-22 19:17:00 Wilfred Desai [facility] Breast Augmentation W/implt 2017-03-11 00:00:00 [facility] Hysteroscopy Dx Sep Proc 2013-12-23 00:00:00 [facility] Plan of Care Planned Activity Planned Date Details Comments Source Future Appointment 2023-09-26 13:00:00 Melita larsen, [address]; [address], [place] [phone] [facility] Future Appointment 2023-07-12 08:30:00 Gcbzw Gcb jose Izaguirre Schedule, [address]; [address], [place] [phone] [facility] Encounters Start Date/Time End Date/Time Encounter Type Admission Type Attending Clinicians Care Facility Care Department Encounter ID Source 2023-04-19 00:00:00 2023-04-19 00:00:00 Angle Moran MD: [address] [place] [address] S, [address], [place] [address] , Ph. [facility] - GC_GCBZW_La alee Lynn* [id number] [facility] 2023-01-18 00:00:00 2023-01-18 00:00:00 Outpatient GC_GCBZW_Ka diyala_S PRIV PRIV [id number] [facility] 2023-01-18 00:00:00 2023-01-18 00:00:00 Outpatient GC_GCBZW_Ka diyala_S PRIV PRIV [id number] [facility] 2023-01-18 00:00:00 2023-01-18 00:00:00 Outpatient GC_GCBZW_Ka diyala_S PRIV PRIV [id number] [facility] 2022-12-24 00:00:00 2022-12-24 00:00:00 Outpatient GC_GCBZW_Ka diyala_S PRIV PRIV [id number] [facility] 2022-11-07 00:00:00 2022-11-07 00:00:00 Outpatient GC_GCBZW_Ka diyala_S PRIV PRIV [id number] [facility] 2022-11-07 00:00:00 2022-11-07 00:00:00 Outpatient GC_GCBZW_Ka diyala_S PRIV PRIV [id number] [facility] 2022-11-07 00:00:00 2022-11-07 00:00:00 Outpatient GC_GCBZW_Ka diyala_S PRIV PRIV [id number] [facility] 2022-10-16 00:00:00 2022-10-16 00:00:00 Outpatient GC_GCBZW_Ka diyala_S PRIV PRIV [id number] [facility] 2022-10-16 00:00:00 2022-10-16 00:00:00 Outpatient GC_GCBZW_Ka diyala_S PRIV PRIV [id number] [facility] 2022-10-02 00:00:00 2022-10-02 00:00:00 Outpatient GC_GCBZW_Ka diyala_S PRIV PRIV [id number] [facility] 2022-09-25 00:00:00 2022-09-25 00:00:00 Outpatient GC_GCBZW_Ka diyala_S PRIV PRIV [id number] [facility] 2022-09-24 00:00:00 2022-09-24 00:00:00 Outpatient GC_GCBZW_Ka diyala_S PRIV PRIV [id number] [facility] 2022-09-20 00:00:00 2022-09-20 00:00:00 Outpatient GC_GCBZW_Ka diyala_S PRIV PRIV [id number] [facility] 2022-09-19 00:00:00 2022-09-19 00:00:00 Outpatient GC_GCBZW_Ka diyala_S PRIV PRIV [id number] [facility] 2022-08-24 09:45:00 2022-08-24 09:45:00 Outpatient R AKINSIPECALISTA [facility] [id number] [facility] 2022-08-03 13:00:00 2022-08-03 13:00:00 Outpatient R AKINSIPECALISTA [facility] [id number] [facility] 2022-07-30 15:00:00 2022-07-30 15:00:00 Outpatient R AKINSIPECALISTA [facility] [id number] [facility] 2022-07-17 14:45:00 2022-07-17 14:45:00 Outpatient R AKINSIPE CALISTA [facility] [id number] [facility] 2022-04-24 13:00:00 2022-04-24 13:10:58 Outpatient R AKINSIPE CALIST[facility] [id number] [facility] 2022-04-24 13:00:00 2022-04-24 13:10:58 Nurse Visit Visit, ChapoRmchchapincito Nurse Calista Serna [facility] PROJECT MANAGER/DESIGN MANAGER [facility] [id number] [facility] 2022-04-17 13:30:00 2022-04-17 13:30:00 Outpatient CALISTA PARIKH [facility] [id number] [facility] 2022-04-09 09:00:00 2022-04-09 09:00:00 Outpatient CALISTA PARIKH [facility] [id number] [facility] 2022-01-09 14:30:00 2022-01-09 15:18:06 Nurse Visit Visit, Horaciochchapincito Nurse Calista Serna [facility] PROJECT MANAGER/DESIGN MANAGER [facility] 1..840.114 [id number] [id number] [facility] 2022-01-09 14:30:00 2022-01-09 14:30:00 Outpatient CALISTA PARIKH [facility] [id number] [facility] 2022-01-08 00:00:00 2022-01-08 00:00:00 Telephone Calista Serna [facility] PROJECT MANAGER/DESIGN MANAGER [facility] 1..840.114 [id number] [id number] [facility] 2022-01-01 13:00:00 2022-01-01 13:00:00 Outpatient R CALISTA SERNA [facility] [id number] [facility] 2021-12-18 13:30:00 2021-12-18 13:30:00 Outpatient R LYDIA DESAI [facility] [id number] [facility] 2021-12-14 09:00:00 2021-12-14 09:00:00 Outpatient R DESAILYDIA [facility] [id number] [facility] 2021-09-13 09:00:00 2021-09-13 09:26:35 Nurse Visit Visit, Ang-Rmchp Nurse Lydia Desai [facility] PROJECT MANAGER/DESIGN MANAGER [facility] ..840.114 [id number] [id number] [facility] 2021-09-13 09:00:00 2021-09-13 09:00:00 Outpatient R LYDIA DESAI [facility] [id number] [facility] 2021-08-14 15:00:00 2021-08-14 15:00:00 Outpatient R CALISTA SERNA [facility] [id number] [facility] 2021-07-28 08:00:00 2021-07-28 08:00:00 Outpatient R DESAILYDIA [facility] [id number] [facility] 2021-07-24 15:00:00 2021-07-24 15:00:00 Outpatient R [facility] [id number] [facility] 2021-07-24 15:00:00 2021-07-24 15:00:00 Outpatient R LYDIA DESAI [facility] [id number] [facility] 2021-05-22 13:45:00 2021-05-22 14:41:23 Outpatient R LYDIA DESAI [facility] [id number] [facility] 2021-05-22 13:45:00 2021-05-22 14:41:23 Office Visit Lydia Desai [facility] PROJECT MANAGER/DESIGN MANAGER [facility] ..840.114 [id number] [id number] [facility] 2021-05-22 13:45:00 2021-05-22 14:41:23 Outpatient R LYDIA DESAI [facility] [id number] [facility] 2021-05-09 14:15:00 2021-05-09 14:15:00 Outpatient R CALISTA SERNA [facility] [id number] [facility] 2021-02-14 15:26:31 2021-02-14 15:49:16 Nurse Visit Visit, Jin-Rmp Melita Brice [facility] PROJECT MANAGER/DESIGN MANAGER [facility] [id number] [id number] [id number] [facility] 2021-02-14 15:30:00 2021-02-14 15:30:00 Outpatient R MELITA ARORA [facility] [id number] [facility] 2021-02-08 08:30:00 2021-02-08 08:30:00 Outpatient R [facility] [id number] [facility] 2020-11-16 08:38:28 2020-11-16 08:58:47 Nurse Visit Visit, Jin-Rmchp Calista Bailey [facility] .[id number] [id number] [facility] 2020-11-16 08:30:00 2020-11-16 08:30:00 Outpatient R [facility] [id number] [facility] 2020-08-24 08:30:00 2020-08-24 08:30:00 Outpatient R [facility] [id number] [facility] 2020-06-02 15:30:00 2020-06-02 15:30:00 Outpatient R [facility] [id number] [facility] 2020-06-01 09:00:00 2020-06-01 09:00:00 Outpatient R AKINSIPE, CALISTA [facility] [id number] [facility] 2020-05-18 13:30:00 2020-05-18 13:30:00 Outpatient CALISTA PARIKH [facility] [id number] [facility] Results Test Description Test Time Test Comments Results Result Co mments Source [facility] ONLY - SYPHILIS [id number] 15:41:25* Test Item Value Reference Range Interpretation Comme [facility] Syphilis IgG/IgM (test code = 95916-6) Non-reactive Non-reactive RENETTA (test code = RENETTA) Non-reactive - No serologic evidence of T. pallidum infection. Cannot exclude incubating or early syphilis. Submit a second specimen in 2-4 weeks if syphilis is clinically suspected. Equivocal - Further testing to follow. Reactive - Further testing to follow. Lab Interpretation (test code = 81951-7) Normal [facility] ONLY - SYPHILIS [id number] 15:41:25* Test Item Value Reference Range Interpretation Comme [facility] Syphilis IgG/IgM (test code = 91589-7) Non-reactive Non-reactive RENETTA (test code = RENETTA) Non-reactive - No serologic evidence of T. pallidum infection. Cannot exclude incubating or early syphilis. Submit a second specimen in 2-4 weeks if syphilis is clinically suspected. Equivocal - Further testing to follow. Reactive - Further testing to follow. Lab Interpretation (test code = 71761-8) Normal [facility] 1/2 AG-AB WITH [id number] 05:11:44* Test Item Value Reference Range Interpretation Comme [facility] HIV Semi-quantitative (test code = 62268-1) Negative Negative RENETTA (test code = RENETTA) Non-reactive for HIV-1 antigen and HIV-1/HIV-2 antibodies. ?No laboratory evidence of HIV infection. ?Repeat in 2-4 weeks if acute HIV infection is suspected. [facility] 1/2 AG-AB WITH [id number] 05:11:44* Test Item Value Reference Range Interpretation Comme [facility] HIV Semi-quantitative (test code = 05163-6) Negative Negative RENETTA (test code = RENETTA) Non-reactive for HIV-1 antigen and HIV-1/HIV-2 antibodies. ?No laboratory evidence of HIV infection. ?Repeat in 2-4 weeks if acute HIV infection is suspected. [facility] [id number] 19:17:00* Test Item Value Reference Range Interpretation Comme nts POCT PREG (test code = 1605) Negative On board controls acceptable with C Line (test code = 3574) Yes POCT PREG LOT # (test code = 3575) POCT PREG TEST DATE ( test code = 3576) [facility] [id number] 19:17:00* Test Item Value Reference Range Interpretation Comme nts POCT PREG (test code = 1605) Negative On board controls acceptable with C Line (test code = 3574) Yes POCT PREG LOT # (test code = 3575) POCT PREG TEST DATE ( test code = 3576) [facility]
--- NOTE | 2023-05-30 06:21 | ER ---
Nurse's Notes [facility] Name: Regine Barrera Age: 32 yrs Sex: Female : 1990 Arrival Date: 05/30/2023 Time: 05:04 Bed 2 Private MD: Zacarias Combs Diagnosis: Allergic urticaria;Acute systemic allergic reaction Presentation: 05/29 05:10 Chief complaint: Patient states: I'm breaking out in hives, I couldn't open my eyes. vc1 05:10 Method Of Arrival: Ambulatory vc1 05:10 Coronavirus screen: At this time, the client does not indicate any symptoms associated vc1 with coronavirus-19. Ebola Screen: Patient negative for fever greater than or equal to 101.5 degrees Fahrenheit, and additional compatible Ebola Virus Disease symptoms Patient denies exposure to infectious person. Patient denies travel to an Ebola-affected area in the 21 days before illness onset. No symptoms or risks identified at this time. Onset: The symptoms/episode began/occurred acutely, suddenly. Anaphylaxis evaluation, angioedema. Initial Sepsis Screen: Does the patient meet any 2 criteria? No. Patient's initial sepsis screen is negative. Does the patient have a suspected source of infection? No. Patient's initial sepsis screen is negative. Risk Assessment: Do you want to hurt yourself or someone else? Patient reports no desire to harm self or others. Note started taking Lamisil about 3 weeks ago. Onset of symptoms was May 30, 2023. 05:10 Acuity: NANCY 2 vc1 Triage Assessment: 05:36 General: Appears in no apparent distress. uncomfortable, Behavior is calm, cooperative, vc1 appropriate for age. Pain: Denies pain. EENT: Throat is clear. Neuro: Level of Consciousness is awake, alert, obeys commands, Oriented to person, place, time, situation, Appropriate for age. Cardiovascular: No deficits noted. Heart tones S1 S2. Respiratory: Airway is patent Respiratory effort is even, unlabored, Respiratory pattern is regular, symmetrical, Breath sounds are clear bilaterally. GI: No deficits noted. No signs and/or symptoms were reported involving the gastrointestinal system. : No deficits noted. No signs and/or symptoms were reported regarding the genitourinary system. Derm: Rash noted that is itchy, red, urticaria. Musculoskeletal: No deficits noted. No signs and/or symptoms reported regarding the musculoskeletal system. 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 Flu vaccine is not up to date. - Social history:: Smoking status: Patient denies any tobacco usage or history of. - Family history:: not pertinent. Screenin:[facility] ED Fall Risk Assessment (Adult) History of falling in the last 3 months, vc1 including since admission No falls in past 3 months (0 pts) Confusion or Disorientation No (0 pts) Intoxicated or Sedated No (0 pts) Impaired Gait No (0 pts) Mobility Assist Device Used No (0 pt) Altered Elimination No (0 pt) Score/Fall Risk Level 0 - 2 = Low Risk Oriented to surroundings, Maintained a safe environment, Educated pt \T\ family on fall prevention, incl call for assistance when getting out of bed. Abuse screen: Denies threats or abuse. Nutritional screening: No deficits noted. Tuberculosis screening: No symptoms or risk factors identified. Assessment: 05:07 General: Appears uncomfortable, Behavior is cooperative. Pain: Denies pain. Neuro: ha1 Level of Consciousness is awake, alert, obeys commands, Oriented to person, place, time, situation. Cardiovascular: Capillary refill < 3 seconds Patient's skin is warm and dry. Respiratory: Airway is patent Respiratory effort is even, unlabored, Respiratory pattern is regular, symmetrical. GI: No signs and/or symptoms were reported involving the gastrointestinal system. Derm: Skin is normal, Rash noted that is red, raised. 05:07 Musculoskeletal: Circulation, motion, and sensation intact. Range of motion: intact in ha1 all extremities. 06:10 Reassessment: Patient and/or family updated on plan of care and expected duration. Pain ha1 level reassessed. Patient is alert, oriented x 3, equal unlabored respirations, skin warm/dry/pink. Patient denies pain at this time. Patient states feeling better. Patient states symptoms have improved. Vital Signs: 05:10 BP 120 / 90; Pulse 99; Resp 18; Temp 98; Pulse Ox 100% ; Weight 68.04 kg; Height 5 ft. vc1 4 in. ; Pain 0/10; 06:00 BP 108 / 79; Pulse 98; Resp 17 S; Pulse Ox 100% on R/A; ha1 05:10 Body Mass Index 25.75 (68.04 kg, 162.56 cm) vc1 05:10 Pain Scale: Adult vc1 ED Course: 05:06 Patient arrived in ED. mr 05:06 Zacarias Combs MD is Private Physician. mr 05:09 Terell Slater MD is Attending Physician. sp4 05:10 Patient has correct armband on for positive identification. Bed in low position. Call vc1 light in reach. Pulse ox on. NIBP on. 05:12 Inserted saline lock: 20 gauge in right antecubital area, using aseptic technique. vc1 05:35 Triage completed. vc1 05:35 Arm band placed on right wrist. vc1 05:37 No provider procedures requiring assistance completed. vc1 06:19 Zacarias Combs MD is Referral Physician. sp4 06:45 IV discontinued, intact, bleeding controlled, No redness/swelling at site. Pressure ha1 dressing applied. 06:45 Provided Education on: medication administration . ha1 Administered Medications: 05:20 Drug: diphenhydrAMINE IVP 50 mg IVP once Route: IVP; Site: right antecubital; vc1 06:00 Follow up: Response: No adverse reaction; Marked relief of symptoms ha1 05:20 Drug: MethylPrednisoLONE IVP 125 mg IVP once Route: IVP; Site: right antecubital; vc1 06:47 Follow up: Response: No adverse reaction ha1 05:38 Drug: Famotidine IVP 20 mg IVP once; dilute with 10 mL 0.9% NaCl; give over 2 minutes vc1 Route: IVP; Site: right antecubital; 06:05 Follow up: Response: No adverse reaction; Marked relief of symptoms ha1 05:40 Drug: NS 0.9% IV 1000 ml IV at 1 bolus Per protocol; 1000 mL bolus Route: IV; Rate: 1 ha1 bolus; Site: right antecubital; 06:46 Follow up: Response: No adverse reaction; IV Status: Completed infusion; IV Intake: ha1 1000ml 06:30 Drug: predniSONE PO 60 mg PO once Route: PO; ha1 06:43 Follow up: Response: No adverse reaction ha1 Medication: 05:37 VIS not applicable for this client. vc1 Intake: 06:46 IV: 1000ml; Total: 1000ml. ha1 Outcome: 06:20 Discharge ordered by . sp4 06:44 Discharged to home ambulatory, patient reports family member will pick her up and will ha1 take her home 06:44 Condition: stable 06:44 Discharge instructions given to patient, Instructed on discharge instructions, follow up and referral plans. medication usage, Demonstrated understanding of instructions, follow-up care, medications, Prescriptions given X 2, 06:48 Patient left the ED. ha1 Signatures: Nichole Perez Reg Reg mr Darline Horner RN RN vc1 Luz Chavez RN RN ha1 Terell Slater MD MD sp4
--- NOTE | 2023-05-30 06:21 | EDPHYS ---
Physician Documentation [facility] Name: Regine Barrera Age: 32 yrs Sex: Female : 1990 Arrival Date: 05/30/2023 Time: 05:04 Bed 2 Private MD: Zacarias Combs ED Physician Terell Slater HPI: 05/29 05:09 This 32 yrs old Female presents to ER via Unassigned with complaints of Hives. sp4 06:12 32-year-old female presents with acute onset of generalized hives starting yesterday. sp4 Patient states she is currently on Lamisil p.o. but not any other medicines. Denied sore throat, denied respiratory problems. 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 Flu vaccine is not up to date. - Social history:: Smoking status: Patient denies any tobacco usage or history of. - Family history:: not pertinent. ROS: 06:16 Constitutional: Negative for fever, chills, and weight loss, positive diffuse hives, sp4 positive facial swelling , positive bilateral eyelid swelling, 06:16 All other systems are negative, Exam: 06:16 Constitutional: This is a well developed, well nourished patient who is awake, alert, sp4 and in no acute distress. Head/Face: Normocephalic, atraumatic. Eyes: Pupils equal round and reactive to light, extra-ocular motions intact. Lids and lashes normal. Conjunctiva and sclera are not injected. Cornea within normal limits. Periorbital areas with no swelling, redness, or edema. ENT: Nares patent. No nasal discharge, no septal abnormalities noted. Tympanic membranes are normal and external auditory canals are clear. Oropharynx with no redness, swelling, or masses, exudates, or evidence of obstruction, uvula midline. Mucous membranes moist. Neck: Trachea midline, no thyromegaly or masses palpated, and no cervical lymphadenopathy. Supple, full range of motion without nuchal rigidity, or vertebral point tenderness. Chest/axilla: Normal chest wall appearance and motion. Nontender with no deformity. No lesions are appreciated. Cardiovascular: Regular rate and rhythm with a normal S1 and S2. No gallops, murmurs, or rubs. Normal PMI, no JVD. No pulse deficits. Respiratory: Lungs have equal breath sounds bilaterally, clear to auscultation and percussion. No rales, rhonchi or wheezes noted. No increased work of breathing, no retractions or nasal flaring. Abdomen/GI: Soft, with normal bowel sounds. No distension or tympany. No guarding or rebound. No evidence of tenderness throughout. Back: No spinal tenderness. No costovertebral tenderness. Skin: Warm, dry with normal turgor. Patient has diffuse generalized hives particularly to face with bilateral eyelid swelling , bilateral facial swelling also generalized hives to neck, trunk upper lower extremities. There are generalized hives to the face. MS/ Extremity: Pulses equal, no cyanosis. Neurovascular intact. Full, normal range of motion. Neuro: Awake and alert, GCS 15, oriented to person, place, time, and situation. Cranial nerves II-XII grossly intact. Motor strength 5/5 in all extremities. Sensory grossly intact. Psych: Awake, alert, with orientation to person, place and time. Behavior, mood, and affect are within normal limits Vital Signs: 05:10 BP 120 / 90; Pulse 99; Resp 18; Temp 98; Pulse Ox 100% ; Weight 68.04 kg; Height 5 ft. vc1 4 in. ; Pain 0/10; 06:00 BP 108 / 79; Pulse 98; Resp 17 S; Pulse Ox 100% on R/A; ha1 05:10 Body Mass Index 25.75 (68.04 kg, 162.56 cm) vc1 05:10 Pain Scale: Adult vc1 MDM: 05:16 Patient medically screened. sp4 06:16 Differential Diagnosis Acute allergic reaction. Data reviewed: vital signs. sp4 Consideration of Admission/Observation Escalation of care including admission/observation considered. ED course: Patient has significantly improved after medications in the ER. Patient will be prescribed prednisone p.o. once a day for the next 5 days also Benadryl 3 times a day. Work release for the next 2 days. 05/29 05:15 Order name: Saline Lock; Complete Time: 05:37 sp4 Administered Medications: 05:20 Drug: diphenhydrAMINE IVP 50 mg IVP once Route: IVP; Site: right antecubital; vc1 06:00 Follow up: Response: No adverse reaction; Marked relief of symptoms ha1 05:20 Drug: MethylPrednisoLONE IVP 125 mg IVP once Route: IVP; Site: right antecubital; vc1 06:47 Follow up: Response: No adverse reaction ha1 05:38 Drug: Famotidine IVP 20 mg IVP once; dilute with 10 mL 0.9% NaCl; give over 2 minutes vc1 Route: IVP; Site: right antecubital; 06:05 Follow up: Response: No adverse reaction; Marked relief of symptoms ha1 05:40 Drug: NS 0.9% IV 1000 ml IV at 1 bolus Per protocol; 1000 mL bolus Route: IV; Rate: 1 ha1 bolus; Site: right antecubital; 06:46 Follow up: Response: No adverse reaction; IV Status: Completed infusion; IV Intake: ha1 1000ml 06:30 Drug: predniSONE PO 60 mg PO once Route: PO; ha1 06:43 Follow up: Response: No adverse reaction ha1 Disposition Summary: 05/30/23 06:20 Discharge Ordered Notes: Location: Home sp4 Problem: new sp4 Symptoms: have improved sp4 Condition: Stable sp4 Diagnosis - Allergic urticaria sp4 - Acute systemic allergic reaction sp4 Followup: sp4 - With: Zacarias Combs MD - When: 7 - 10 days - Reason: Recheck today's complaints Discharge Instructions: - Discharge Summary Sheet sp4 - Hives, [id number]-[id number] sp4 Forms: - Patient Portal Instructions sp4 Prescriptions: - diphenhydramine HCl 25 mg Oral capsule - take 2 capsule ORAL route every 8 hours for 5 days; 50 capsule; Refills: 0, sp4 Product Selection Permitted - Prednisone 20 mg Oral Tablet - take 2 tablets ORAL route once daily for 5 days; 10 tablet; Refills: 0, Product sp4 Selection Permitted Signatures: Darline Horner RN RN vc1 Luz Chavez RN RN ha1 Terell Slater MD MD sp4
[2023-05-30 06:56] VITALS: BP 108/79; TEMP 98; O2SAT 100
== END ==
LOC: ER 05:04
DX: L50.0 Allergic urticaria (principal); Z28.310 Unvaccinated for COVID-19
CPT/HCPCS: 96361; 96375; 96374; 99284; J7512; J1200; J2930; J7030

== ENCOUNTER 2023-09-07 18:23 | Emergency (ER) | payer OTHER ==
--- OUTSIDE RECORDS SUMMARY | 2023-09-07 18:26 | XMS REPORT | Continuity of Care Document ---
Author Name Unknown Address [address] [facility]. 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 Name Role Phone AURELIA CASTRO JR Primary Care Physician Sandro hameed GC_GCBZW_Dean_S Attending Clinician Unavaila CALISTA Thompson Attending Clinician Unavail able [facility] Att[facility] Purvi Serna Calista LANIER Attending Clinician + LYDIA DESAI Attending Clinician Lydia Hooper Attending Clinician [phone] Melita Murillo Attending Clinician [phone] MELITA ARORA Attending Clinician Unavailabl e LUISA_GCBZW_Dean_S Admitting Clinician Tavon weaver Payers Payer Name Policy Type Policy Number Effective Date Expirati on Date Source [employer] [id number] 2022 00:00:00 2023 00:00:00 [employer] (MEDICAID REPLACEMENT - HMO) [id number] 2022 00:00:00 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 [employer] [id number] [employer] [facility] [employer] [facility] [id number] 2022 00:00:00 [place] [id number] 2022 00:00:00 Problems Condition Name Condition Details [...] Acute Vaginitis Problem Active 7-17 00:00: 00 [facility] Medical Need for HPV vaccinatio n Need for HPV vaccinatio n Disease Active 3-15 00:00: 00 [facility] Encounter for initial prescripti on of injectable contracept davidson Encounter for initial prescripti on of injectable contracept davidson Disease Active 05-22 00:00: 00 [facility] BMI 25.0-25.9, adult BMI 25.0-25.9, adult Disease Active 05-22 00:00: 00 [facility] BMI 25.0-25.9, adult BMI 25.0-25.9, adult Disease Active 05-22 00:00: 00 [facility] Screening examinatio n for STD (sexually transmitte d disease) Screening examinatio n for STD (sexually transmitte d disease) Disease Active 3- 00:00: 00 [facility] LSIL (low grade squamous intraepith elial lesion) on Pap smear LSIL (low grade squamous intraepith elial lesion) on Pap smear Disease Active 05-08 00:00: 00 Overview: Formattin g of this note might be different from the original. Refer to dysplasia . [facility] Rubella immune Rubella immune Disease Active 05-04 00:00: 00 [facility] Encounter for routine gynecologi aubrey examinatio n Encounter for routine gynecologi aubrey examinatio n Disease Active 04-30 00:00: 00 Overview: Formattin g of this note might be different from the original. 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 [facility] Allergies, Adverse Reactions, Alerts Allergy Name Allergy Type Status Severity Reaction(s) Onset Date Inactive Date Treating Clinician Comments Source NO KNOWN ALLERGIE S Drug Class Active [facility] Social History Social Habit Start Date Stop Date Quantity Comments Source History SDOH Alcohol Frequency [facility] History SDOH Alcohol Std Drinks [facility] History SDOH Alcohol Binge [facility] Exposure to SARS-CoV-2 (event) 2022-04-14 00:00:00 2022-04-24 13:10:00 Not sure [facility] Alcohol intake 2021-09-13 00:00:00 2021-09-13 00:00:00 Current drinker of alcohol (finding) [facility] Alcohol Comment 2020-05-18 00:00:00 2020-05-18 00:00:00 social [facility] Tobacco use and exposure 2013-04-30 00:00:00 2013-04-30 00:00:00 Smokeless tobacco non-user [facility] Sex Assigned At 1990 00:00:00 1990 00:00:00 [facility] Smoking Status Start Date Stop Date Source Never smoked tobacco [facility] Medications Ordered Medication Name Filled Medication Name Start Date Stop Date Current Medication? Ordering Clinician Indication Dosage Frequency Signature (SIG) Comments Components Source Depo-Dye Room Helper a 150 mg/mL intramuscul ar suspensionI nject 1 mL every 3 months by intramuscul ar route for 90 days. Depo-Dye Room Helper a 150 mg/mL intramuscul ar suspensionI nject 1 mL every 3 months by intramuscul ar route for 90 days. 03 08:04: 03 No 1mL Depo-Prove ra 150 mg/mL intramuscu lar suspension Inject 1 mL every 3 months by intramuscu lar route for 90 days. [facility] medroxyPROG ESTERone (DEPO-PROVE RA) syringe 150 mg -14 20:00: 00 04-24 19:13 :00 No [id number] 150mg Univer s [facility] medroxyPROG ESTERone (DEPO-PROVE RA) injection 150 mg 3-14 19:30: 00 04-23 20:14 :00 No [id number] 150mg Univer s [facility] mupirocin 2 % topical ointment 1 application to affected area; Three times a day; 5 day(s) mupirocin 2 % topical ointment 1 application to affected area; Three times a day; 5 day(s) 09-27 00:00: 00 No mupirocin 2 % topical ointment 1 applicatio n to affected area; Three times a day; 5 day(s) [facility] Medical multivitami n multivitami n No multivitam in [facility] Vital Signs Vital Name Observation Time Observation Value Comments S ource Systolic blood pressure 2022-04-24 19:11:00 127 mm[Hg] [facility] Diastolic blood pressure 2022-04-24 19:11:00 70 mm[Hg] [facility] Heart rate 2022-04-24 19:11:00 85 /min [facility] Body temperature 2022-04-24 19:11:00 36.39 Annmarie [facility] Respiratory rate 2022-04-24 19:11:00 18 /min [facility] Body height 2022-04-24 19:11:00 165.1 cm [facility] Body weight 2022-04-24 19:11:00 69.128 kg [facility] BMI 2022-04-24 19:11:00 25.36 kg/m2 [facility] Systolic blood pressure 2022-01-09 20:16:00 129 mm[Hg] [facility] Diastolic blood pressure 2022-01-09 20:16:00 81 mm[Hg] [facility] Heart rate 2022-01-09 20:16:00 87 /min [facility] Body temperature 2022-01-09 20:16:00 36.22 Annmarie [facility] Respiratory rate 2022-01-09 20:16:00 18 /min [facility] Body weight 2022-01-09 20:16:00 69.491 kg [facility] BMI 2022-01-09 20:16:00 25.49 kg/m2 [facility] Systolic blood pressure 2021-09-13 14:08:00 118 mm[Hg] [facility] Diastolic blood pressure 2021-09-13 14:08:00 79 mm[Hg] [facility] Heart rate 2021-09-13 14:08:00 81 /min Unive [facility] Body temperature 2021-09-13 14:08:00 36.28 Annmarie [facility] Respiratory rate 2021-09-13 14:08:00 18 /min [facility] Body weight 2021-09-13 14:08:00 71.215 kg [facility] BMI 2021-09-13 14:08:00 26.13 kg/m2 [facility] Systolic blood pressure 2021-05-22 18:48:00 109 mm[Hg] [facility] Diastolic blood pressure 2021-05-22 18:48:00 75 mm[Hg] [facility] Heart rate 2021-05-22 18:48:00 95 /min Unive [facility] Body temperature 2021-05-22 18:48:00 36.72 Annmarie [facility] Respiratory rate 2021-05-22 18:48:00 16 /min [facility] Body height 2021-05-22 18:48:00 165.1 cm [facility] Body weight 2021-05-22 18:48:00 69.763 kg [facility] BMI 2021-05-22 18:48:00 25.59 kg/m2 [facility] Procedures Procedure Date / Time Performed Performing Clinician Source POCT TEST 2021-09-13 14:13:00 Gab Serna [facility] GARDASIL 9 (HPV 9V) VACCINE 2021-09-13 14:09:26 Calista Serna [facility] HIV 1/2 AG-AB WITH REFLEX 2021-05-22 20:45:00 Lydia Desai [facility] PAP SMEAR-LIQUID BASED-CP 2021-05-22 20:45:00 Lydia Desai [facility] GALV ONLY - SYPHILIS IGG/IGM 2021-05-22 20:45:00 Lydia Desai [facility] GARDASIL 9 (HPV 9V) VACCINE 2021-05-22 19:42:17 Lydia Desai [facility] POCT TEST 2021-05-22 19:17:00 Wilfred Desai [facility] Breast Augmentation W/implt 2017-03-11 00:00:00 [facility] Hysteroscopy Dx Sep Proc 2013-12-23 00:00:00 [facility] Plan of Care Planned Activity Planned Date Details Comments Source Future Appointment 2023-09-26 13:00:00 Melita larsen, [address]; [address], [place] [phone] [facility] Medical Encounters Start Date/Time End Date/Time Encounter Type Admission Type Attending Clinicians Care Facility Care Department Encounter ID Source 2023-07-12 00:00:00 2023-07-12 00:00:00 Angle Moran MD: [address], [address], [place] [phone] , [facility] - GC_GCBZW_Yolie vickers [place]* [id number] [facility] 2023-04-19 00:00:00 2023-04-19 00:00:00 Angle Moran MD: [address], [place] [phone] , [facility] - GC_GCBZW_Yolie vickers [place]* [id number] [facility] 2023-01-18 00:00:00 2023-01-18 00:00:00 Outpatient GC_GCBZW_Ka diyala_S [facility] [id number] [facility] 2023-01-18 00:00:00 2023-01-18 00:00:00 Outpatient GC_GCBZW_Ka diyala_S [facility] [id number] [facility] 2023-01-18 00:00:00 2023-01-18 00:00:00 Outpatient GC_GCBZW_Ka diyala_S [facility] [id number] [facility] 2022-12-24 00:00:00 2022-12-24 00:00:00 Outpatient GC_GCBZW_Ka diyala_S PRIV PRIV [id number] [facility] 2022-11-07 00:00:00 2022-11-07 00:00:00 Outpatient GC_GCBZW_Ka diyala_S PRIV PRIV [id number] [facility] 2022-11-07 00:00:00 2022-11-07 00:00:00 Outpatient GC_GCBZW_Ka diyala_S PRIV PRIV [id number] [facility] 2022-11-07 00:00:00 2022-11-07 00:00:00 Outpatient GC_GCBZW_Ka diyala_S PRIV PRIV [id number] [facility] 2022-10-16 00:00:00 2022-10-16 00:00:00 Outpatient GC_GCBZW_Ka diyala_S PRIV PRIV [id number] [facility] 2022-10-16 00:00:00 2022-10-16 00:00:00 Outpatient GC_GCBZW_Ka diyala_S PRIV PRIV [id number] [facility] 2022-10-02 00:00:00 2022-10-02 00:00:00 Outpatient GC_GCBZW_Ka diyala_S PRIV PRIV [id number] [facility] 2022-09-25 00:00:00 2022-09-25 00:00:00 Outpatient GC_GCBZW_Ka diyala_S PRIV PRIV [id number] [facility] 2022-09-24 00:00:00 2022-09-24 00:00:00 Outpatient GC_GCBZW_Ka diyala_S PRIV PRIV [id number] [facility] 2022-09-20 00:00:00 2022-09-20 00:00:00 Outpatient GC_GCBZW_Ka diyala_S PRIV PRIV [id number] [facility] 2022-09-19 00:00:00 2022-09-19 00:00:00 Outpatient GC_GCBZW_Ka diyala_S [facility] [id number] [facility] 2022-08-24 09:45:00 2022-08-24 09:45:00 Outpatient R JOSE CALISTA [facility] [id number] [facility] 2022-08-03 13:00:00 2022-08-03 13:00:00 Outpatient R JOSE CALISTA [facility] [id number] [facility] 2022-07-30 15:00:00 2022-07-30 15:00:00 Outpatient R JOSE CALISTA [facility] [id number] [facility] 2022-07-17 14:45:00 2022-07-17 14:45:00 Outpatient R JOSE CALISTA [facility] [id number] [facility] 2022-04-24 13:00:00 2022-04-24 13:10:58 Outpatient R JOSE CALISTA [facility] [id number] [facility] 2022-04-24 13:00:00 2022-04-24 13:10:58 Nurse Visit Visit, Calista Myers [facility]UTE [facility] PHYSICAL THERAPIST [facility] & CHILD [facility] [id number] [facility] 2022-04-17 13:30:00 2022-04-17 13:30:00 Outpatient R JOSE CALISTA [facility] [id number] [facility] 2022-04-09 09:00:00 2022-04-09 09:00:00 Outpatient R JOSE CALISTA [facility] [id number] [facility] 2022-01-09 14:30:00 2022-01-09 15:18:06 Nurse Visit Visit, Calista Myers [facility] PHYSICAL THERAPIST [facility] CHILD [facility] ..840.114 [id number] [facility] 2022-01-09 14:30:00 2022-01-09 14:30:00 Outpatient CALISTA PARIKH [facility] [id number] [facility] 2022-01-08 00:00:00 2022-01-08 00:00:00 Telephone Calista Serna [facility] PHYSICAL THERAPIST [facility] CHILD [facility] ..840.114 [id number] [id number] [facility] 2022-01-01 13:00:00 2022-01-01 13:00:00 Outpatient CALISTA PARIKH [facility] [id number] [facility] 2021-12-18 13:30:00 2021-12-18 13:30:00 Outpatient LYDIA DÍAZ [facility] [id number] [facility] 2021-12-14 09:00:00 2021-12-14 09:00:00 Outpatient LYDIA DÍAZ [facility] [id number] [facility] 2021-09-13 09:00:00 2021-09-13 09:26:35 Nurse Visit Visit, Ang-Rmchp Nurse Lydia Desai [facility] PHYSICAL THERAPIST [facility] CHILD [facility] ..840.114 [id number] [id number] [facility] 2021-09-13 09:00:00 2021-09-13 09:00:00 Outpatient LYDIA DÍAZ [facility] [id number] [facility] 2021-08-14 15:00:00 2021-08-14 15:00:00 Outpatient R CALISTA SERNA [facility] [id number] [facility] 2021-07-28 08:00:00 2021-07-28 08:00:00 Outpatient R DESAILYDIA [facility] [id number] [facility] 2021-07-24 15:00:00 2021-07-24 15:00:00 Outpatient R [facility] [id number] [facility] 2021-07-24 15:00:00 2021-07-24 15:00:00 Outpatient R DESAILYDIA [facility] [id number] [facility] 2021-05-22 13:45:00 2021-05-22 14:41:23 Outpatient R LYDIA DESAI [facility] [id number] [facility] 2021-05-22 13:45:00 2021-05-22 14:41:23 Office Visit Lydia Desai [facility]UTE [facility] PHYSICAL THERAPIST [facility] MATERNAL & CHILD [facility] 1..840.114 [id number] [id number] [facility] 2021-05-22 13:45:00 2021-05-22 14:41:23 Outpatient LYDIA DÍAZ [facility] [id number] [facility] 2021-05-09 14:15:00 2021-05-09 14:15:00 Outpatient CALISTA PARIKH [facility] [id number] [facility] 2021-02-14 15:26:31 2021-02-14 15:49:16 Nurse Visit Visit, Ang-Rmchp Nurse Melita Arora [facility] PHYSICAL THERAPIST [facility] CHILD [facility] ..840.114 [id number] [id number] [facility] 2021-02-14 15:30:00 2021-02-14 15:30:00 Outpatient MELITA LAWTON [facility] [id number] [facility] 2021-02-08 08:30:00 2021-02-08 08:30:00 Outpatient R [facility] [id number] [facility] 2020-11-16 08:38:28 2020-11-16 08:58:47 Nurse Visit Visit, Ang-Rmchp Nurse Calista Serna [facility] ACUTE CARE PHYSICAL THERAPIST [facility] & [facility]ILD [facility] [id number] [facility] 2020-11-16 08:30:00 2020-11-16 08:30:00 Outpatient R [facility] [id number] [facility] 2020-08-24 08:30:00 2020-08-24 08:30:00 Outpatient R [facility] [id number] [facility] 2020-06-02 15:30:00 2020-06-02 15:30:00 Outpatient R [facility] [id number] [facility] 2020-06-01 09:00:00 2020-06-01 09:00:00 Outpatient R CALISTA ESRNA [facility] [id number] [facility] 2020-05-18 13:30:00 2020-05-18 13:30:00 Outpatient R CALISTA SERNA [facility] [id number] [facility] Results Test Description Test Time Test Comments Results Result Co mments Source [facility] ONLY - SYPHILIS [id number] 15:41:25* Test Item Value Reference Range Interpretation Comme nts Syphilis IgG/IgM (test code = 44740-6) Non-reactive Non-reactive RENETTA (test code = RENETTA) Non-reactive - No serologic evidence of T. pallidum infection. Cannot exclude incubating or early syphilis. Submit a second specimen in 2-4 weeks if syphilis is clinically suspected. Equivocal - Further testing to follow. Reactive - Further testing to follow. Lab Interpretation (test code = 97640-9) Normal [facility] ONLY - SYPHILIS [id number] 15:41:25* Test Item Value Reference Range Interpretation Comme nts Syphilis IgG/IgM (test code = 54258-4) Non-reactive Non-reactive RENETTA (test code = RENETTA) Non-reactive - No serologic evidence of T. pallidum infection. Cannot exclude incubating or early syphilis. Submit a second specimen in 2-4 weeks if syphilis is clinically suspected. Equivocal - Further testing to follow. Reactive - Further testing to follow. Lab Interpretation (test code = 68154-8) Normal [facility] 1/2 AG-AB WITH [id number] 05:11:44* Test Item Value Reference Range Interpretation Comme nts HIV Semi-quantitative (test code = 97503-5) Negative Negative RENETTA (test code = RENETTA) Non-reactive for HIV-1 antigen and HIV-1/HIV-2 antibodies. ?No laboratory evidence of HIV infection. ?Repeat in 2-4 weeks if acute HIV infection is suspected. [facility] 1/2 AG-AB WITH [id number] 05:11:44* Test Item Value Reference Range Interpretation Comme nts HIV Semi-quantitative (test code = 54877-8) Negative Negative RENETTA (test code = RENETTA) Non-reactive for HIV-1 antigen and HIV-1/HIV-2 antibodies. ?No laboratory evidence of HIV infection. ?Repeat in 2-4 weeks if acute HIV infection is suspected. [facility] [id number] 19:17:00* Test Item Value Reference Range Interpretation Comme nts POCT PREG (test code = 1605) Negative On board controls acceptable with C Line (test code = 3574) Yes POCT PREG LOT # (test code = 3575) POCT PREG TEST DATE ( test code = 3576) [facility] [id number] 19:17:00* Test Item Value Reference Range Interpretation Comme nts POCT PREG (test code = 1605) Negative On board controls acceptable with C Line (test code = 3574) Yes POCT PREG LOT # (test code = 3575) POCT PREG TEST DATE ( test code = 3576) [facility]
--- NOTE | 2023-09-07 19:48 | RAD REPORT ---
EXAM DESCRIPTION: CESAR - EVLIA - 09/07/2023 7:14 pm CLINICAL HISTORY: PAIN COMPARISON: No comparisons TECHNIQUE: Left hand, 3 views. FINDINGS: No fracture is identified. There is no dislocation or periosteal reaction noted. Joint alignment is maintained. No foreign body or other soft tissue abnormality. IMPRESSION: Negative left hand examination.
--- NOTE | 2023-09-07 19:54 | ER ---
Nurse's Notes [facility] Name: Regine Barrera Age: 32 yrs Sex: Female : 1990 Arrival Date: 09/07/2023 Time: 18:23 Bed 17 Private MD: Diagnosis: Contusion of left hand Presentation: 09/06 08:27 Chief complaint: Left hand pain and bruising after mechanical fall from standing hb yesterday. Coronavirus screen: At this time, the client does not indicate any symptoms associated with coronavirus-19. Ebola Screen: No symptoms or risks identified at this time. Initial Sepsis Screen: Does the patient meet any 2 criteria? No. Patient's initial sepsis screen is negative. Does the patient have a suspected source of infection? No. Patient's initial sepsis screen is negative. Risk Assessment: Do you want to hurt yourself or someone else? Patient reports no desire to harm self or others. Onset of symptoms was September 06, 2023. 08:27 Method Of Arrival: Ambulatory 08:27 Acuity: NANCY 4 hb Triage Assessment: 19:48 Injury Description: fall. 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 - Infectious Disease History:: Denies. - Social history:: Smoking status: Patient denies any tobacco usage or history of. Screenin:41 [facility] ED Fall Risk Assessment (Adult) History of falling in the last 3 months, hb including since admission No falls in past 3 months (0 pts) Confusion or Disorientation No (0 pts) Intoxicated or Sedated No (0 pts) Impaired Gait No (0 pts) Mobility Assist Device Used No (0 pt) Altered Elimination No (0 pt) Score/Fall Risk Level 0 - 2 = Low Risk Oriented to surroundings, Maintained a safe environment, Educated pt \T\ family on fall prevention, incl call for assistance when getting out of bed. Abuse screen: Denies threats or abuse. Denies injuries from another. Nutritional screening: No deficits noted. Tuberculosis screening: No symptoms or risk factors identified. Assessment: 18:41 General: Appears in no apparent distress. Behavior is calm, cooperative. Pain: Pain hb currently is 3 out of 10 on a pain scale. Neuro: Level of Consciousness is awake, alert, obeys commands, Oriented to person, place, time, situation. Cardiovascular: Patient's skin is warm and dry. Respiratory: Respiratory effort is even, unlabored, Respiratory pattern is regular, symmetrical. GI: No signs and/or symptoms were reported involving the gastrointestinal system. : No signs and/or symptoms were reported regarding the genitourinary system. EENT: No signs and/or symptoms were reported regarding the EENT system. Derm: Skin is pink, warm \T\ dry. Musculoskeletal: bruising noted to left palm Reports pain in palm of left hand. Vital Signs: 08:27 BP 129 / 80; Pulse 103; Resp 16; Temp 97.7(TE); Pulse Ox 98% on R/A; Weight 72.57 kg; hb Height 5 ft. 5 in. ; Pain 3/10; 19:00 BP 126 / 68; Pulse 100; Resp 15; Pulse Ox 99% ; me1 20:00 BP 128 / 81; Pulse 102; Resp 15; Temp 98.4; Pulse Ox 97% ; me1 08:27 Body Mass Index 26.63 (72.57 kg, 165.1 cm) hb 08:27 Pain Scale: Adult hb ED Course: 18:24 Patient arrived in ED. [email or web address] 18:25 Samantha Lynn FNP-C is [facility]. kb 18:25 Julius Henriquez MD is Attending Physician. kb 18:40 Triage completed. hb 18:41 Arm band placed on. hb 18:41 Patient has correct armband on for positive identification. Provided Education on: hb tests, result times. 18:41 No provider procedures requiring assistance completed. Patient did not have IV access hb during this emergency room visit. 19:16 Hand Left 3 View XRAY In Process Unspecified. EDMS 19:47 Jael Neil, RN is Primary Nurse. me1 Administered Medications: No medications were administered Medication: 18:41 VIS not applicable for this client. hb Outcome: 19:53 Discharge ordered by . kb 20:17 Discharged to home ambulatory, me1 20:17 Condition: stable 20:17 Discharge instructions given to patient, Instructed on discharge instructions, follow up and referral plans. Demonstrated understanding of instructions, follow-up care, 20:17 Patient left the ED. me1 Signatures: Dispatcher [employer] Samantha Chen, INDER BRITO-Eva Mead, RN RN Irene Amanda [email or web address] Jael Neil RN RN az1 Corrections: (The following items were deleted from the chart) 19:47 08:27 Chief complaint: Left hand pain and bruising after mechanical fall from standing me1 yesterday. hb
--- NOTE | 2023-09-07 19:54 | EDPHYS ---
Physician Documentation [facility] Name: Regine Barrera Age: 32 yrs Sex: Female : 1990 Arrival Date: 09/07/2023 Time: 18:23 Bed 17 Private MD: ED Physician Julius Henriquez HPI: 09/06 18:26 This 32 yrs old Female presents to ER via Unassigned with complaints of Hand kb Injury. 18:26 Pt is a 32 year old female who presents for left hand pain after falling onto it kb yesterday. Denies any other injury. States she can move it, but cannot do anything with it due to pain with pressure. 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 - Infectious Disease History:: Denies. - Social history:: Smoking status: Patient denies any tobacco usage or history of. ROS: 18:26 Constitutional: As per HPI kb Exam: 18:26 Constitutional: This is a well developed, well nourished patient who is awake, alert, kb and in no acute distress. Head/Face: Normocephalic, atraumatic. ENT: Moist Mucous membranes Cardiovascular: Regular rate Respiratory: Respirations even and unlabored. No increased work of breathing. Talking in full sentences Skin: Warm, dry with normal turgor. Normal color. Neuro: Awake and alert, GCS 15, oriented to person, place, time, and situation. Moves all extremities. Normal gait. 18:26 Musculoskeletal/extremity: Extremities: grossly normal except: noted in the heel of left hand and palm of left hand: ecchymosis, pain, swelling, tenderness, ROM: intact in all extremities, Circulation is intact in all extremities. Sensation intact. Vital Signs: 08:27 BP 129 / 80; Pulse 103; Resp 16; Temp 97.7(TE); Pulse Ox 98% on R/A; Weight 72.57 kg; hb Height 5 ft. 5 in. ; Pain 3/10; 19:00 BP 126 / 68; Pulse 100; Resp 15; Pulse Ox 99% ; me1 20:00 BP 128 / 81; Pulse 102; Resp 15; Temp 98.4; Pulse Ox 97% ; me1 08:27 Body Mass Index 26.63 (72.57 kg, 165.1 cm) hb 08:27 Pain Scale: Adult hb MDM: 18:25 Patient medically screened. kb 18:28 Differential diagnosis: dislocation, closed fracture, contusion. Data reviewed: vital kb signs, nurses notes. 19:53 Independent interpretation of the following test(s) in the Emergency Department X-Ray: kb My interpretation is no fracture. Counseling: I had a detailed discussion with the patient and/or guardian regarding the historical points, exam findings, and any diagnostic results supporting the discharge/admit diagnosis, radiology results, the need for outpatient follow up, a family practitioner, to return to the emergency department if symptoms worsen or persist or if there are any questions or concerns that arise at home. 09/06 18:26 Order name: Hand Left 3 View XRAY; Complete Time: 19:53 kb Administered Medications: No medications were administered Disposition Summary: 09/07/23 19:53 Discharge Ordered Notes: Location: Home kb Condition: Stable kb Diagnosis - Contusion of left hand kb Followup: kb - With: Emergency Department - When: As needed - Reason: Worsening of condition Followup: kb - With: Private Physician - When: 2 - 3 days - Reason: Recheck today's complaints, Continuance of care, Re-evaluation by your physician Discharge Instructions: - Discharge Summary Sheet kb - Hand Contusion, [id number] kb Forms: - Medication Reconciliation Form kb - Antibiotic Education kb - Prescription Opioid Use kb - Patient Portal Instructions kb - Leadership Thank You Letter kb Signatures: Dispatcher [employer] Samantha Chen, TITLE CLOSER-C TITLE CLOSER-Eva Mead, RN RN hb
[2023-09-07 20:33] VITALS: BP 128/81; TEMP 98.4; O2SAT 97
== END 2023-09-07 20:17 | disposition home or self-care (01) ==
LOC: ER 18:23
DX: S60.222A Contusion of left hand, initial encounter (principal)
CPT/HCPCS: 99283